=== PATIENT | female | born 1980 | race Caucasian/White ===

== ENCOUNTER 2016-08-06 07:55 | Day surgery (SDC) | payer MEDICARE, OTHER ==
[2016-08-06 08:13] VITALS: BP 123/77; PULSE 86; RESP 20; TEMP 98.2
--- NOTE | 2016-08-06 09:35 | US ---
Postoperative subcutaneous seroma HISTORY: Seroma drainage The procedure was discussed with the patient. The risks, complications, benefits and alternatives wer e discussed. Any questions were answered and informed consent was obtained. All elements of maximal barrier technique were utilized. The patient was placed supine on the ultrasound table, prepped and draped in the usual sterile fashi on. Utilizing 18-gauge needle single accessing of the seroma was achieved. There is removal of appro ximately 300 cc of serous fluid. The patient remained stable throughout procedure and is stable upon discharge the catheterization lab. Case discussed with referring physician who declined placement of drainage catheter. All elements of maximal barrier technique and sterile technique utilized. IMPRESSION: 1. Successful fine-needle aspiration subcutaneous seroma..
== END 2016-08-06 09:40 | disposition home or self-care (01) ==
LOC: RADPROMAIN 07:55
PROVIDERS: ATTEND Surgery Plastic and Reconstructive Surgery
DX: L76.34 Postprocedural seroma of skin and subcutaneous tissue following other procedure (principal)
CPT/HCPCS: 10160; 76942

== ENCOUNTER → 2016-08-21 | Outpatient (CLI) | payer MEDICARE, OTHER ==
[2016-08-21 14:37] VITALS: BP 120/72; PULSE 95; RESP 16; TEMP 99.1; BMI 31.6
--- NOTE | 2016-08-22 08:29 | PN ---
DATE OF SERVICE: 08/21/2016 CHIEF COMPLAINT: Status post panniculectomy. HISTORY OF PRESENT ILLNESS: Kaiser Murray is a 36-year-old female status post panniculectomy on 07/11/2016. She is approximately 6 weeks out. Approximately a little over a week ago, she had drainage of abdominal seroma over 300 mL. She denies any recurrent fullness of the abdomen. She does report mild abdominal pain; however, she had a recent flu. Now she presents for further evaluation and management. Highest weight for her 5-foot 6-inch frame was 300 pounds. Her ideal body weight is 154 pounds. Today she comes in weighing 196 pounds. She has lost approximately 3 pounds since her last visit a month ago. Percent excess weight loss is 71% lifetime. Body mass index reduced from 48.5 down to 31.7 lifetime PHYSICAL EXAM: VITAL SIGNS: 99.1, 95, 16, 120/72; 5 feet 6 inches, 196 pounds, body mass index 31.7. ABDOMEN: Soft, nontender with no recurrent panniculitis. All wounds completely granulated. No palpable fluid wave. GENERAL: Well-developed, pleasant female in no acute distress. MUSCULOSKELETAL: No clubbing, cyanosis. CARDIOVASCULAR: Regular rate. HEENT: No scleral icterus. Extraocular movements grossly intact. Moist buccal mucosa. NECK: Supple without lymphadenopathy. CHEST: Unlabored respirations with equal bilateral excursions. NEURO: No focal or lateralizing signs. ASSESSMENT: 1. History of panniculitis. resolved. 2. Status post panniculectomy. 3. History of abdominal wall seroma. 4. Status post sleeve gastrectomy. 5. Obesity, body mass index is 31.7. 6. Body mass index reduced from 48.5 down to 31.7. 7. Previous history of morbid obesity. PLAN: 1. I recommended a repeat ultrasound with potential fine needle aspiration for abdominal wall seroma. 2. In the interim, she will continue to wear an abdominal binder at all times. 3. She may start with light weights and activity as she is now beyond 6 weeks. [facility]
== END | disposition home or self-care (01) ==
LOC: BARWHC3 13:48
PROVIDERS: ATTEND Surgery Plastic and Reconstructive Surgery
DX: Z48.815 Encounter for surgical aftercare following surgery on the digestive system (principal); K91.872 Postprocedural seroma of a digestive system organ or structure following a digestive system procedure; E66.9 Obesity, unspecified; Z68.31 Body mass index [BMI] 31.0-31.9, adult
CPT/HCPCS: 99211

== ENCOUNTER 2016-09-05 08:37 | Day surgery (SDC) | payer MEDICARE, OTHER ==
[2016-09-05 09:45] VITALS: BP 124/74; PULSE 86; RESP 18; TEMP 97.7
--- NOTE | 2016-09-05 11:08 | US ---
Limited pelvic ultrasound HISTORY: Seroma Ultrasound performed at the site of patient's symptomatology in the anterior abdomen. Minimal fluid i s noted. IMPRESSION: Small postoperative seroma
== END 2016-09-05 10:15 | disposition home or self-care (01) ==
LOC: RADPROMAIN 08:37
PROVIDERS: ATTEND Surgery Plastic and Reconstructive Surgery
DX: K91.873 Postprocedural seroma of a digestive system organ or structure following other procedure (principal); Z53.8 Procedure and treatment not carried out for other reasons
CPT/HCPCS: 76857

== ENCOUNTER → 2016-09-12 | Outpatient (CLI) | payer MEDICARE, OTHER ==
[2016-09-12 10:31] VITALS: BP 113/80; PULSE 84; RESP 18; TEMP 98.1; BMI 32.1
--- NOTE | 2016-09-18 18:48 | P.PN ---
Progress Note - Text DATE OF SERVICE: 09/12/2016 CHIEF COMPLAINT: Status post panniculectomy. HISTORY OF PRESENT ILLNESS: Kaiser Murray is a 36-year-old female status post panniculectomy on 07/11/2016. She is less than 3 months out. She denies any recurrent fullness of the abdomen. She is healing well. She denies any pain. She is eager to start exercising. She continues to wear an abdominal compression garment Highest weight for her 5-foot 6-inch frame was 300 pounds. Her ideal body weight is 154 pounds. Today she comes in weighing 198 pounds. She has gained 2 pounds in 3 weeks. Percent excess weight loss is 70% lifetime. Body mass index reduced from 48.5 down to 32.1 lifetime PHYSICAL EXAM: VITAL SIGNS: 98.1, 84, 18, 113/80; 5 feet 6 inches, 198 pounds, body mass index 32.1. ABDOMEN: Soft, nontender with no recurrent panniculitis. All wounds completely granulated. No palpable fluid wave. Abdominal compression garment present. GENERAL: Well-developed, pleasant female in no acute distress. MUSCULOSKELETAL: No clubbing, cyanosis. CARDIOVASCULAR: Regular rate. HEENT: No scleral icterus. Extraocular movements grossly intact. Moist buccal mucosa. NECK: Supple without lymphadenopathy. CHEST: Unlabored respirations with equal bilateral excursions. NEURO: No focal or lateralizing signs. ASSESSMENT: 1. History of panniculitis. resolved. 2. Status post panniculectomy. 3. Status post weight loss 102 pounds, lifetime. 4. Status post sleeve gastrectomy. 5. Obesity, body mass index is 32.1 6. Body mass index reduced from 48.5 down to 32.1. 7. Previous history of morbid obesity. PLAN: 1. She is free of all restrictions and may resume activity. 2. She may continue to wear abdominal compression garment for comfort. 3. She was advised to monitor her weight as weight regain can cause tearing of her abdominal wall including hernias and recurrent seromas. 4. At minimum, yearly follow-up at the bariatric center for history of sleeve gastrectomy.
== END | disposition home or self-care (01) ==
LOC: BARWHC3 09:58
PROVIDERS: ATTEND Surgery Plastic and Reconstructive Surgery
DX: Z48.815 Encounter for surgical aftercare following surgery on the digestive system (principal); Z98.84 Bariatric surgery status; E66.9 Obesity, unspecified; Z68.32 Body mass index [BMI] 32.0-32.9, adult
CPT/HCPCS: 99212

== ENCOUNTER → 2018-04-15 | Outpatient (CLI) | payer BC ==
[2018-04-15 16:57] VITALS: BP 131/81; PULSE 76; RESP 12; TEMP 99.5; BMI 32.4
--- NOTE | 2018-04-15 17:08 | P.PN ---
Subjective Progress Note Date: 04/15/18 HPI: Her weight has been stable for 2 years. She reports no abdominal pain. GERD is controlled with medications. She is taking MVI. ABDOMEN: Unremarkable. No recurrent hernia PLAN: 1. Cardio advised. 2. Get blood work. Objective - Vital Signs Vital signs: Vital Signs Temp 99.5 F 04/15/18 16:49 Pulse 76 04/15/18 16:49 Resp 12 04/15/18 16:49 BP 131/81 04/15/18 16:49 Pulse Ox Intake & Output 04/14/18 04/15/18 04/15/18 18:59 06:59 18:59 Weight 91.172 kg
[2018-04-15 18:26] LABS: Partial Thromboplastin Time 23.5 sec (22.0-30.0); Prothrombin Time 9.9 sec (9.0-12.0)
[2018-04-15 18:34] LABS: ALT 21 U/L (9-52); AST 21 U/L (14-36); Albumin 4.3 g/dL (3.5-5.0); Alkaline Phosphatase 60 U/L (38-126); Anion Gap 10 mmol/L; Blood Urea Nitrogen 11 mg/dL (7-17); Calcium 9.6 mg/dL (8.4-10.2); Carbon Dioxide 26 mmol/L (22-30); Chloride 104 mmol/L (98-107); Cholesterol 189 mg/dL (<200); Glucose 102 mg/dL (74-99); HDL Cholesterol 68 mg/dL (40-60); LDL Cholesterol,Calculated 109 mg/dL (0-99); Magnesium 2.1 mg/dL (1.6-2.3); Phosphorus 4.8 mg/dL (2.5-4.5); Potassium 4.9 mmol/L (3.5-5.1); Sodium 140 mmol/L (137-145); Total Bilirubin 0.2 mg/dL (0.2-1.3); Total Protein 7.6 g/dL (6.3-8.2); Triglycerides 61 mg/dL (<150)
[2018-04-15 18:50] LABS: HCT 40.2 % (34.0-46.0); HGB 12.7 gm/dL (11.4-16.0); Hypochromasia Slight; MCH 27.9 pg (25.0-35.0); MCHC 31.6 g/dL (31.0-37.0); MCV 88.3 fL (80.0-100.0); Mean Platelet Volume 7.3; Platelet Count 358 k/uL (150-450); RBC 4.55 m/uL (3.80-5.40); RDW 14.5 % (11.5-15.5); WBC 6.4 k/uL (3.8-10.6)
[2018-04-16 01:53] LABS: Iron Saturation 13.47 (12.00-45.00)
[2018-04-16 02:01] LABS: Vitamin D 25 Hydroxy 36.8 ng/mL (30.0-100.0)
[2018-04-16 02:25] LABS: Folate, Serum >24.0 ng/mL
[2018-04-16 02:40] LABS: Parathyroid Hormone Intact 50.4 pg/mL (14.0-72.0)
[2018-04-16 05:29] LABS: Hemoglobin A1C 5.5 % (4.0-6.0)
[2018-04-17 15:08] LABS: Zinc, Serum 91 ug/dL (60-130)
[2018-04-20 06:13] LABS: Vitamin B1 90 ug/L (38-122)
[2018-04-21 08:23] LABS: Vitamin A 51 ug/dL (38-106)
[2018-04-21 15:22] LABS: Selenium 134 mcg/L (63-160)
== END | disposition home or self-care (01) ==
LOC: BARWHC3 15:33
PROVIDERS: ATTEND Surgery Plastic and Reconstructive Surgery
DX: R10.9 Unspecified abdominal pain (principal); K21.9 Gastro-esophageal reflux disease without esophagitis; E66.01 Morbid (severe) obesity due to excess calories; E21.1 Secondary hyperparathyroidism, not elsewhere classified; E89.1 Postprocedural hypoinsulinemia; D50.9 Iron deficiency anemia, unspecified; K90.9 Intestinal malabsorption, unspecified; E55.9 Vitamin D deficiency, unspecified; K74.1 Hepatic sclerosis; N19 Unspecified kidney failure; K50.90 Crohn's disease, unspecified, without complications; Z79.899 Other long term (current) drug therapy
CPT/HCPCS: 80053; 80061; 82306; 82525; 82607; 82728; 82746; 83036; 83540; 83550; 83735; 83970; 84100; 84134; 84255; 84425; 84443; 84590; 84630; 85027; 85610; 85730; 99211

== ENCOUNTER 2018-05-03 18:35 | Emergency (ER) | payer MEDICARE, BC ==
--- NOTE | 2018-05-03 19:06 | ED ---
General Adult HPI - General Chief complaint: Chest Pain Stated complaint: CHest Pain, Arm Numbness Time Seen by Provider: 05/03/18 18:44 Source: patient, RN notes reviewed, old records reviewed Mode of arrival: ambulatory Limitations: no limitations - History of Present Illness Initial comments: This is a 38-year-old female the ER for evaluation. Patient is evaluation of testing. Patient does have no medical history of chest pain, no prior history of chest pain. No cardiac risk factors, no high blood pressure normal cholesterol no diabetes nonsmoker with no family history. Patient states she does have mild psychiatric illness. Patient has been under a lot of increased stress as of recent. She was helping her family move although her is disabled secondary to an accident fractured his leg. - Related Data Home Medications Medication Instructions Recorded Confirmed Multivitamins, Thera [Multivitamin 1 tab PO DAILY 06/08/14 04/15/18 (formulary)] QUEtiapine [SEROquel] 50 mg PO DAILY 02/07/16 04/15/18 lamoTRIgine 200 mg PO BID 02/16/16 04/15/18 FLUoxetine HCL [PROzac] 20 mg PO DAILY 03/13/16 04/15/18 Amoxicillin 500 mg PO Q12HR 04/15/18 04/15/18 Previous Rx's Medication Instructions Recorded Omeprazole 40 mg PO DAILY #90 capsule. 07/12/16 Allergies Allergy/AdvReac Type Severity Reaction Status Date / Time No Known Allergies Allergy Verified 05/03/18 18:42 Review of Systems ROS Statement: Those systems with pertinent positive or pertinent negative responses have been documented in the HPI. ROS Other: All systems not noted in ROS Statement are negative. Past Medical History Past Medical History: GERD/Reflux Additional Past Medical History / Comment(s): past history of hypertension, as of 03/13/16 has no complaints of GERD> History of Any Multi-Drug Resistant Organisms: None Reported Past Surgical History: Bariatric Surgery, Cholecystectomy, Tubal Ligation Additional Past Surgical History / Comment(s): LAPAROTOMY, BILATERAL FALLOPIAN TUBES REMOVED ,Sleeve gastrectomy 12/12/14, paniculectomy Jul 2016 Past Anesthesia/Blood Transfusion Reactions: No Reported Reaction Past Psychological History: Anxiety, Bipolar, Depression, PTSD Smoking Status: Never smoker Past Alcohol Use History: Rare Past Drug Use History: None Reported - Past Family History Mother Family Medical History: No Reported History Additional Family Medical History / Comment(s): colitis General Exam Limitations: no limitations General appearance: alert, in no apparent distress Head exam: Present: atraumatic, normocephalic, normal inspection Eye exam: Present: normal appearance, PERRL, EOMI. Absent: scleral icterus, conjunctival injection, periorbital swelling ENT exam: Present: normal exam, mucous membranes moist Neck exam: Present: normal inspection. Absent: tenderness, meningismus, lymphadenopathy Respiratory exam: Present: normal lung sounds bilaterally. Absent: respiratory distress, wheezes, rales, rhonchi, stridor Cardiovascular Exam: Present: regular rate, normal rhythm, normal heart sounds. Absent: systolic murmur, diastolic murmur, rubs, gallop, clicks GI/Abdominal exam: Present: soft, normal bowel sounds. Absent: distended, tenderness, guarding, rebound, rigid Extremities exam: Present: normal inspection, full ROM, normal capillary refill. Absent: tenderness, pedal edema, joint swelling, calf tenderness Back exam: Present: normal inspection Neurological exam: Present: alert, oriented X3, CN II-XII intact Psychiatric exam: Present: normal affect, normal mood Skin exam: Present: warm, dry, intact, normal color. Absent: rash Course Vital Signs 05/03/18 05/03/18 18:40 19:05 Temperature 98.2 F Pulse Rate 86 73 Respiratory 16 18 Rate Blood Pressure 113/75 130/73 O2 Sat by Pulse 100 99 Oximetry - Reevaluation(s) Reevaluation #1: 05/03/18 19:40 Medical record is reviewed Reevaluation #2: 05/03/18 19:40 Patient is in no distress, no modifying factors for pain EKG Findings - EKG Comments: EKG Findings:: EKG shows normal sinus rhythm rate of 73, OK 156, QRS 92, QTc 424 Medical Decision Making - Medical Decision Making 38 female the ER for evaluation. Patient presents today for evaluation of chest pain. Chest pain is nonspecific with left hand numbness. Not reproducible. EKG troponin x-ray negative. Patient has no cardiac risk factors will be discharged home - Lab Data Result diagrams: 05/03/18 19:02 05/03/18 19:02 Lab Results 05/03/18 05/03/18 05/03/18 Range/Units 19:02 19:02 19:02 WBC 7.5 (3.8-10.6) k/uL RBC 4.40 (3.80-5.40) m/uL Hgb 12.4 (11.4-16.0) gm/dL Hct 38.3 (34.0-46.0) % MCV 87.1 (80.0-100.0) fL MCH 28.1 (25.0-35.0) pg MCHC 32.3 (31.0-37.0) g/dL RDW 14.6 (11.5-15.5) % Plt Count 345 (150-450) k/uL Neutrophils % 59 % Lymphocytes % 31 % Monocytes % 5 % Eosinophils % 2 % Basophils % 0 % Neutrophils # 4.4 (1.3-7.7) k/uL Lymphocytes # 2.3 (1.0-4.8) k/uL Monocytes # 0.4 (0-1.0) k/uL Eosinophils # 0.2 (0-0.7) k/uL Basophils # 0.0 (0-0.2) k/uL PT 9.7 (9.0-12.0) sec INR 1.0 (<1.2) APTT 23.3 (22.0-30.0) sec Sodium 140 (137-145) mmol/L Potassium 4.6 (3.5-5.1) mmol/L Chloride 104 (98-107) mmol/L Carbon Dioxide 27 (22-30) mmol/L Anion Gap 9 mmol/L BUN 14 (7-17) mg/dL Creatinine 0.66 (0.52-1.04) mg/dL Est GFR (CKD-EPI)AfAm >90 (>60 ml/min/1.73 sqM) Est GFR (CKD-EPI)NonAf >90 (>60 ml/min/1.73 sqM) Glucose 93 (74-99) mg/dL Calcium 9.4 (8.4-10.2) mg/dL Magnesium 2.0 (1.6-2.3) mg/dL Total Bilirubin 0.2 (0.2-1.3) mg/dL AST 33 (14-36) U/L ALT 27 (9-52) U/L Alkaline Phosphatase 68 (38-126) U/L Total Protein 7.4 (6.3-8.2) g/dL Albumin 4.2 (3.5-5.0) g/dL - Radiology Data Radiology results: report reviewed (Chest x-rays negative for acute disease), image reviewed Disposition Clinical Impression: Atypical chest pain Disposition: HOME SELF-CARE Condition: Good Instructions: Chest Pain (ED) Is patient prescribed a controlled substance at d/c from ED?: No Referrals: Stevie Friedman III, MD [Primary Care Provider] - 1-2 days
[2018-05-03 19:26] LABS: Basophils % (A) 0 %; Eosinophils # (A) 0.2 k/uL (0-0.7); Eosinophils % (A) 2 %; HCT 38.3 % (34.0-46.0); HGB 12.4 gm/dL (11.4-16.0); Lymphocytes # (A) 2.3 k/uL (1.0-4.8); Lymphocytes % (A) 31 %; MCH 28.1 pg (25.0-35.0); MCHC 32.3 g/dL (31.0-37.0); MCV 87.1 fL (80.0-100.0); Mean Platelet Volume 7.5; Monocytes # (A) 0.4 k/uL (0-1.0); Monocytes % (A) 5 %; Neutrophils # (A) 4.4 k/uL (1.3-7.7); Neutrophils % (A) 59 %; Platelet Count 345 k/uL (150-450); RDW 14.6 % (11.5-15.5); WBC 7.5 k/uL (3.8-10.6)
--- NOTE | 2018-05-03 19:26 | XR ---
EXAMINATION TYPE: XR chest 2V DATE OF EXAM: 05/03/2018 COMPARISON: NONE HISTORY: Chest pain TECHNIQUE: Frontal and lateral views of the chest are obtained. FINDINGS: Heart and mediastinum are normal. Lungs are clear. Diaphragm is normal. Bony thorax is int act. IMPRESSION: Normal chest.
[2018-05-03 19:36] LABS: Partial Thromboplastin Time 23.3 sec (22.0-30.0); Prothrombin Time 9.7 sec (9.0-12.0)
[2018-05-03 19:38] LABS: ALT 27 U/L (9-52); AST 33 U/L (14-36); Albumin 4.2 g/dL (3.5-5.0); Alkaline Phosphatase 68 U/L (38-126); Anion Gap 9 mmol/L; Blood Urea Nitrogen 14 mg/dL (7-17); Calcium 9.4 mg/dL (8.4-10.2); Carbon Dioxide 27 mmol/L (22-30); Chloride 104 mmol/L (98-107); Glucose 93 mg/dL (74-99); Potassium 4.6 mmol/L (3.5-5.1); Sodium 140 mmol/L (137-145); Total Bilirubin 0.2 mg/dL (0.2-1.3); Total Protein 7.4 g/dL (6.3-8.2)
[2018-05-03 19:49] LABS: Creatine Kinase 266 U/L (30-135)
[2018-05-03 20:01] LABS: Creatine Kinase MB 1.8 ng/mL (0.0-2.4); Troponin I <0.012 ng/mL (0.000-0.034)
[2018-05-03 20:06] VITALS: BP 143/82; PULSE 70; RESP 16; TEMP 98.4
== END 2018-05-03 20:50 | disposition home or self-care (01) ==
LOC: EC 18:35
DX: R07.89 Other chest pain (principal); R20.0 Anesthesia of skin; F31.9 Bipolar disorder, unspecified; F41.9 Anxiety disorder, unspecified; Z79.899 Other long term (current) drug therapy
CPT/HCPCS: 36415; 71046; 80053; 82550; 82553; 83735; 84484; 85025; 85610; 85730; 93005; 99285

== ENCOUNTER 2018-05-25 20:13 | Emergency (ER) | payer MEDICARE, BC ==
[2018-05-25 20:24] VITALS: RESP 18
--- NOTE | 2018-05-25 21:28 | ED ---
Abdominal Pain HPI - General Chief Complaint: Abdominal Pain Stated Complaint: side pain Source: patient Mode of arrival: ambulatory Limitations: no limitations - History of Present Illness Initial Comments: Injury is a 38-year-old female with a history of bariatric surgery in the past who presents the emergency department today for 1 day of right lower quadrant abdominal pain. Patient reports that she woke Friday morning experiencing some aching pain in her right lower quadrant. Patient states that she had been out dancing Friday night so thought this pain was musculoskeletal in nature. She reports that since that time the pain has progressively grown worse, it's a aching with occasional stabbing in her right lower quadrant. The pain is associated with nausea, but no vomiting. Patient reports she's had a few episodes of nonbloody diarrhea as well. Patient has a history of bariatric surgery as well as a cholecystectomy. Patient denies any fevers but reports she's been chilled. She denies any additional complaints including chest pain, shortness of breath. - Related Data Home Medications Medication Instructions Recorded Confirmed Multivitamins, Thera [Multivitamin 1 tab PO DAILY 06/08/14 05/25/18 (formulary)] QUEtiapine [SEROquel] 50 mg PO HS 02/07/16 05/25/18 lamoTRIgine 200 mg PO BID 02/16/16 05/25/18 FLUoxetine HCL [PROzac] 20 mg PO DAILY 03/13/16 05/25/18 Previous Rx's Medication Instructions Recorded Omeprazole 40 mg PO DAILY #90 capsule. 07/12/16 Allergies Allergy/AdvReac Type Severity Reaction Status Date / Time No Known Allergies Allergy Verified 05/25/18 21:39 Review of Systems ROS Statement: Those systems with pertinent positive or pertinent negative responses have been documented in the HPI. ROS Other: All systems not noted in ROS Statement are negative. Past Medical History Past Medical History: GERD/Reflux Additional Past Medical History / Comment(s): past history of hypertension, as of 03/13/16 has no complaints of GERD> History of Any Multi-Drug Resistant Organisms: None Reported Past Surgical History: Bariatric Surgery, Cholecystectomy, Tubal Ligation Additional Past Surgical History / Comment(s): LAPAROTOMY, BILATERAL FALLOPIAN TUBES REMOVED ,Sleeve gastrectomy 12/12/14, paniculectomy Jul 2016 Past Anesthesia/Blood Transfusion Reactions: No Reported Reaction Past Psychological History: Anxiety, Bipolar, Depression, PTSD Smoking Status: Never smoker Past Alcohol Use History: Occasional Past Drug Use History: None Reported - Past Family History Mother Family Medical History: No Reported History Additional Family Medical History / Comment(s): colitis General Exam - General Exam Comments Initial Comments: Physical Exam GENERAL: Patient is well-developed and well-nourished. Patient is nontoxic and well-hydrated and is in mild distress HENT: Normocephalic, Atraumatic. EYES: PERRL, EOMI PULMONARY: Unlabored respirations. No audible rales rhonchi or wheezing was noted. CARDIOVASCULAR: There is a regular rate and rhythm without any murmurs gallops or rubs. ABDOMEN: Soft with normal bowel sounds. Tenderness to deep palpation in the right lower quadrant, negative Rovsing sign , negative psoas sign, negative obturator sign Minimal tenderness to palpation of right flank SKIN: Skin is clear with no lesions or rashes and otherwise unremarkable. Well-healed surgical scars on the abdomen : Deferred NEUROLOGIC: Patient is alert and oriented x3. Moving all extremities spontaneously MUSCULOSKELETAL: Normal extremities with adequate strength and full range of motion. No lower extremity swelling or edema. No calf tenderness. PSYCHIATRIC: Normal psychiatric evaluation. Limitations: no limitations Limitations: no limitations Course Vital Signs 05/25/18 05/25/18 20:22 23:44 Temperature 97.6 F 98.1 F Pulse Rate 87 75 Respiratory 18 18 Rate Blood Pressure 109/77 128/84 O2 Sat by Pulse 99 Oximetry Medical Decision Making - Medical Decision Making Patient was seen and evaluated, history was obtained from the patient and review of medical record Patient with one half days of right lower quadrant abdominal pain which has been progressively worsening associated with nausea and decreased appetite Patient's last menstrual period was last month she is due to start her menses anytime, she is status post tubal ligation with no concern for or sexual transmitted infections Labs and computed tomography scan were ordered Labs and no significant abnormalities Computed tomography scan evidence of a right-sided ovarian cyst measuring 2.8 cm , no free fluid in the pelvis, no evidence of appendicitis Results were discussed with the patient, patient then revealed that she does have a history of ovarian cysts and this pain is similar to previous ovarian cyst that she has previously only experienced pain on the left side of her the right. All questions pertaining to care were answered the best my ability, return parameters were discussed and the patient was discharged home in stable condition - Lab Data Result diagrams: 05/25/18 21:40 05/25/18 21:40 Lab Results 05/25/18 05/25/18 05/25/18 Range/Units 20:45 20:45 21:40 WBC 8.4 (3.8-10.6) k/uL RBC 4.43 (3.80-5.40) m/uL Hgb 12.8 (11.4-16.0) gm/dL Hct 39.2 (34.0-46.0) % MCV 88.4 (80.0-100.0) fL MCH 28.9 (25.0-35.0) pg MCHC 32.7 (31.0-37.0) g/dL RDW 14.8 (11.5-15.5) % Plt Count 366 (150-450) k/uL Neutrophils % 55 % Lymphocytes % 32 % Monocytes % 8 % Eosinophils % 3 % Basophils % 0 % Neutrophils # 4.6 (1.3-7.7) k/uL Lymphocytes # 2.6 (1.0-4.8) k/uL Monocytes # 0.7 (0-1.0) k/uL Eosinophils # 0.3 (0-0.7) k/uL Basophils # 0.0 (0-0.2) k/uL Sodium (137-145) mmol/L Potassium (3.5-5.1) mmol/L Chloride (98-107) mmol/L Carbon Dioxide (22-30) mmol/L Anion Gap mmol/L BUN (7-17) mg/dL Creatinine (0.52-1.04) mg/dL Est GFR (CKD-EPI)AfAm (>60 ml/min/1.73 sqM) Est GFR (CKD-EPI)NonAf (>60 ml/min/1.73 sqM) Glucose (74-99) mg/dL Calcium (8.4-10.2) mg/dL Total Bilirubin (0.2-1.3) mg/dL AST (14-36) U/L ALT (9-52) U/L Alkaline Phosphatase (38-126) U/L Total Protein (6.3-8.2) g/dL Albumin (3.5-5.0) g/dL Lipase (23-300) U/L Urine Color Colorless Urine Appearance Clear (Clear) Urine pH 7.0 (5.0-8.0) Ur Specific [place] 1.004 (1.001-1.035) Urine Protein Negative (Negative) Urine Glucose (UA) Negative (Negative) Urine Ketones Negative (Negative) Urine Blood Negative (Negative) Urine Nitrite Negative (Negative) Urine Bilirubin Negative (Negative) Urine Urobilinogen <2.0 (<2.0) mg/dL Ur Leukocyte Esterase Negative (Negative) Urine HCG, Qual Not Detected (Not Detectd) 05/25/18 Range/Units 21:40 WBC (3.8-10.6) k/uL RBC (3.80-5.40) m/uL Hgb (11.4-16.0) gm/dL Hct (34.0-46.0) % MCV (80.0-100.0) fL MCH (25.0-35.0) pg MCHC (31.0-37.0) g/dL RDW (11.5-15.5) % Plt Count (150-450) k/uL Neutrophils % % Lymphocytes % % Monocytes % % Eosinophils % % Basophils % % Neutrophils # (1.3-7.7) k/uL Lymphocytes # (1.0-4.8) k/uL Monocytes # (0-1.0) k/uL Eosinophils # (0-0.7) k/uL Basophils # (0-0.2) k/uL Sodium 137 (137-145) mmol/L Potassium 5.0 (3.5-5.1) mmol/L Chloride 103 (98-107) mmol/L Carbon Dioxide 25 (22-30) mmol/L Anion Gap 9 mmol/L BUN 18 H (7-17) mg/dL Creatinine 0.70 (0.52-1.04) mg/dL Est GFR (CKD-EPI)AfAm >90 (>60 ml/min/1.73 sqM) Est GFR (CKD-EPI)NonAf >90 (>60 ml/min/1.73 sqM) Glucose 91 (74-99) mg/dL Calcium 9.6 (8.4-10.2) mg/dL Total Bilirubin 0.5 (0.2-1.3) mg/dL AST 48 H (14-36) U/L ALT 22 (9-52) U/L Alkaline Phosphatase 62 (38-126) U/L Total Protein 8.6 H (6.3-8.2) g/dL Albumin 4.8 (3.5-5.0) g/dL Lipase 131 (23-300) U/L Urine Color Urine Appearance (Clear) Urine pH (5.0-8.0) Ur Specific [place] (1.001-1.035) Urine Protein (Negative) Urine Glucose (UA) (Negative) Urine Ketones (Negative) Urine Blood (Negative) Urine Nitrite (Negative) Urine Bilirubin (Negative) Urine Urobilinogen (<2.0) mg/dL Ur Leukocyte Esterase (Negative) Urine HCG, Qual (Not Detectd) Disposition Clinical Impression: Ovarian cyst Disposition: HOME SELF-CARE Condition: Good Instructions: Ovarian Cyst (ED), Ruptured Ovarian Cyst (ED) Is patient prescribed a controlled substance at d/c from ED?: No Referrals: Stevie Friedman III, MD [Primary Care Provider] - 1-2 days
[2018-05-25] MEDS ORDERED: SODIUM CHLORIDE 0.9% 1,000 ML IV STA (21:35)
[2018-05-25 21:55] LABS: Basophils % (A) 0 %; Eosinophils # (A) 0.3 k/uL (0-0.7); Eosinophils % (A) 3 %; HCT 39.2 % (34.0-46.0); HGB 12.8 gm/dL (11.4-16.0); Lymphocytes # (A) 2.6 k/uL (1.0-4.8); Lymphocytes % (A) 32 %; MCH 28.9 pg (25.0-35.0); MCHC 32.7 g/dL (31.0-37.0); MCV 88.4 fL (80.0-100.0); Mean Platelet Volume 7.8; Monocytes # (A) 0.7 k/uL (0-1.0); Monocytes % (A) 8 %; Neutrophils # (A) 4.6 k/uL (1.3-7.7); Neutrophils % (A) 55 %; Platelet Count 366 k/uL (150-450); RBC 4.43 m/uL (3.80-5.40); RDW 14.8 % (11.5-15.5); WBC 8.4 k/uL (3.8-10.6)
[2018-05-25 22:05] LABS: ALT 22 U/L (9-52); AST 48 U/L (14-36); Albumin 4.8 g/dL (3.5-5.0); Alkaline Phosphatase 62 U/L (38-126); Anion Gap 9 mmol/L; Blood Urea Nitrogen 18 mg/dL (7-17); Calcium 9.6 mg/dL (8.4-10.2); Carbon Dioxide 25 mmol/L (22-30); Chloride 103 mmol/L (98-107); Glucose 91 mg/dL (74-99); Lipase 131 U/L (23-300); Sodium 137 mmol/L (137-145); Total Bilirubin 0.5 mg/dL (0.2-1.3); Total Protein 8.6 g/dL (6.3-8.2)
[2018-05-25 22:05] LABS: Appearance,Urine Clear (Clear); Bilirubin,Urine Negative (Negative); Blood,Urine Negative (Negative); Color,Urine Colorless; Glucose,Urine (UA) Negative (Negative); Ketones,Urine Negative (Negative); Leukocyte Esterase,Urine Negative (Negative); Nitrite,Urine Negative (Negative); Protein,Urine Negative (Negative); Specific Gravity,Urine 1.004 (1.001-1.035); Urobilinogen,Urine <2.0 mg/dL (<2.0)
--- NOTE | 2018-05-25 23:23 | CT ---
EXAMINATION TYPE: CT abdomen pelvis w con DATE OF EXAM: 05/25/2018 COMPARISON: 11/20/2012 HISTORY: Right lower quadrant abdominal pain and nausea. CT DLP: 1049.3 mGycm Automated exposure control for dose reduction was used. TECHNIQUE: Helical acquisition of images was performed from the lung bases through the pelvis. CONTRAST: Performed without Oral Contrast and with IV Contrast, patient injected with 100ml mL of Isovue 300. FINDINGS: Lung bases are clear. There is no pleural effusion. Heart size is normal. There is no pericardial eff usion. There are clips from area tricks surgery on the stomach. Heart size is normal. Liver spleen pancreas appear normal. Bile ducts are not dilated. Gallbladder appears absent. There is no adrenal mass. Kidneys have normal size and contour. There is no hydronephrosis. The urete rs are nondilated. There is 1.5 cm cyst anterior right kidney. There is 3 mm calculus lateral left ki dney. There is no retroperitoneal adenopathy. Ureters are not dilated. There is no hydronephrosis. Uterus is anteverted. Bladder distends smoothly. I see no free fluid in the pelvis. There is no ingui nal hernia. There is 2.8 cm cyst on the right ovary. I see no pelvic adenopathy. The appendix appears normal. There is no intestinal wall thickening. There are no dilated loops. The bony structures appe ar intact. Bony pelvis is intact. There is no compression fracture. IMPRESSION: BARIATRIC SURGERY. RIGHT OVARIAN CYST. NONOBSTRUCTING LEFT RENAL CALCULUS. NO SIGN OF ACUTE ABDOMEN A ND PELVIS. NO EVIDENCE OF APPENDICITIS. NORMAL APPENDIX. RIGHT OVARY CYST IS NEW COMPARED TO OLD EXAM AND COULD BE CAUSE FOR THE PATIENT'S SYMPTOMS.
[2018-05-25] MEDS ORDERED: KETOROLAC 30 MG/ML 1 ML VIAL IVP ONE (23:37)
[2018-05-25 23:52] VITALS: BP 128/84; PULSE 75; TEMP 98.1
== END 2018-05-25 23:50 | disposition home or self-care (01) ==
LOC: EC 20:13
DX: N83.201 Unspecified ovarian cyst, right side (principal); F31.9 Bipolar disorder, unspecified; F41.9 Anxiety disorder, unspecified; F43.10 Post-traumatic stress disorder, unspecified; Z79.899 Other long term (current) drug therapy; Z98.51 Tubal ligation status; Z98.84 Bariatric surgery status; Z90.49 Acquired absence of other specified parts of digestive tract
CPT/HCPCS: 36415; 80053; 83690; 85025; 81003; 81025; 74177; 99284; 96374; 96361; J1885; Q9967

== ENCOUNTER 2018-11-02 05:33 | Emergency (ER) | payer BC, MEDICARE ==
[2018-11-02 05:44] VITALS: BP 126/84; PULSE 92; RESP 20; TEMP 98.3
[2018-11-02] MEDS ORDERED: AMOXICILLIN 875 MG TAB PO STA (06:02)
--- NOTE | 2018-11-02 06:04 | ED ---
ENT HPI - General Chief complaint: ENT Stated complaint: Sore throat Time Seen by Provider: 11/02/18 05:48 Source: patient, family Mode of arrival: ambulatory Limitations: no limitations - History of Present Illness Initial comments: This patient is 38-year-old woman presenting with sore throat that started about 3 days ago. Over the past day she has also been having fever and chills. She has had some bifrontal headache over the past night. Patient states that the pain is aching and burning, worse with swallowing. She has not discovered any relieving factors. She is not having any difficulty with breathing, speech. MD complaint: sore throat Onset/Timin -: days(s) Location: throat Severity: moderate Quality: burning, aching Consistency: constant Improves with: none Worsens with: swallowing Associated Symptoms: fever, sore throat - Related Data Home Medications Medication Instructions Recorded Confirmed Multivitamins, Thera [Multivitamin 1 tab PO DAILY 06/08/14 05/25/18 (formulary)] QUEtiapine [SEROquel] 50 mg PO HS 02/07/16 05/25/18 lamoTRIgine 200 mg PO BID 02/16/16 05/25/18 FLUoxetine HCL [PROzac] 20 mg PO DAILY 03/13/16 05/25/18 Previous Rx's Medication Instructions Recorded Omeprazole 40 mg PO DAILY #90 capsule. 07/12/16 Amoxicillin 875 mg PO Q12HR #14 tablet 11/02/18 Allergies Allergy/AdvReac Type Severity Reaction Status Date / Time No Known Allergies Allergy Verified 11/02/18 05:44 Review of Systems ROS Statement: Those systems with pertinent positive or pertinent negative responses have been documented in the HPI. ROS Other: All systems not noted in ROS Statement are negative. Constitutional: Reports: fever, chills. Denies: weakness Eyes: Denies: eye pain, vision change ENT: Reports: throat pain. Denies: ear pain, hearing loss Respiratory: Denies: cough, dyspnea Cardiovascular: Denies: chest pain, palpitations Gastrointestinal: Denies: abdominal pain, nausea, vomiting Genitourinary: Denies: dysuria, hematuria Skin: Denies: rash Neurological: Reports: headache. Denies: weakness, numbness Past Medical History Past Medical History: GERD/Reflux Additional Past Medical History / Comment(s): past history of hypertension, as of 03/13/16 has no complaints of GERD> History of Any Multi-Drug Resistant Organisms: None Reported Past Surgical History: Bariatric Surgery, Cholecystectomy, Tubal Ligation Additional Past Surgical History / Comment(s): LAPAROTOMY, BILATERAL FALLOPIAN TUBES REMOVED ,Sleeve gastrectomy 12/12/14, paniculectomy Jul 2016 Past Anesthesia/Blood Transfusion Reactions: No Reported Reaction Past Psychological History: Anxiety, Bipolar, Depression, PTSD Smoking Status: Never smoker Past Alcohol Use History: Occasional Past Drug Use History: None Reported - Past Family History Mother Family Medical History: No Reported History Additional Family Medical History / Comment(s): colitis General Exam Limitations: no limitations General appearance: alert, in no apparent distress Head exam: Present: atraumatic, normocephalic Eye exam: Present: normal appearance. Absent: scleral icterus, conjunctival injection ENT exam: Present: mucous membranes moist, other (Patient has pharyngitis. The uvula is midline with no peritonsillar abscess. Voice normal.) Neck exam: Present: normal inspection, full ROM, lymphadenopathy. Absent: meningismus Respiratory exam: Present: normal lung sounds bilaterally. Absent: respiratory distress, wheezes, rales, rhonchi, stridor Cardiovascular Exam: Present: regular rate, normal rhythm, normal heart sounds. Absent: systolic murmur, diastolic murmur, rubs, gallop GI/Abdominal exam: Present: soft. Absent: distended, tenderness, guarding, rebound, rigid, organomegaly, mass Skin exam: Present: warm, dry, intact, normal color. Absent: rash Course Vital Signs 11/02/18 05:39 Temperature 98.3 F Pulse Rate 92 Respiratory 20 Rate Blood Pressure 126/84 O2 Sat by Pulse 99 Oximetry Disposition Clinical Impression: Strep pharyngitis Disposition: HOME SELF-CARE Condition: Good Instructions (If sedation given, give patient instructions): Strep Throat (ED) Prescriptions: Amoxicillin 875 mg PO Q12HR #14 tablet Is patient prescribed a controlled substance at d/c from ED?: No Referrals: Stevie Friedman III, MD [Primary Care Provider] - 1-2 days
== END 2018-11-02 06:44 | disposition home or self-care (01) ==
LOC: EC 05:33
DX: J02.0 Streptococcal pharyngitis (principal); F31.9 Bipolar disorder, unspecified; F43.10 Post-traumatic stress disorder, unspecified; F41.9 Anxiety disorder, unspecified; Z79.899 Other long term (current) drug therapy
CPT/HCPCS: 99282

== ENCOUNTER → 2019-01-13 | Outpatient (CLI) | payer BC | END | disposition home or self-care (01) | LOC: RADNMMAIN 07:39 | PROVIDERS: ATTEND Family Medicine | DX: R07.9 Chest pain, unspecified (principal); R00.0 Tachycardia, unspecified | CPT/HCPCS: 93017 ==

== ENCOUNTER → 2019-04-30 | Outpatient (CLI) | payer BC ==
--- NOTE | 2019-04-30 16:13 | US ---
EXAMINATION TYPE: US abdomen complete DATE OF EXAM: 04/30/2019 COMPARISON: CT & US CLINICAL HISTORY: R10.9 abd pain. Pt states bloating and pain x 2 weeks, GB removed EXAM MEASUREMENTS: Liver Length: 16.3 cm CBD: 0.7 cm Spleen: 9.0 cm Right Kidney: 11.2 x 4.8 x 5.1 cm Left Kidney: 11.9 x 5.7 x 5.2 cm Pancreas: wnl Liver: wnl Gallbladder: Surgically absent Evidence for sonographic Womack's sign: No CBD: wnl Spleen: wnl, accessory spleen= 1.1 x 1.1 cm Right Kidney: wnl, lower pole gassed out Left Kidney: No evidence of hydro, possible calculi upper pole= 4mm Upper IVC: wnl Abd Aorta: wnl IMPRESSION: 1. Nonobstructing superior pole left renal stone
== END | disposition home or self-care (01) ==
LOC: RADUSWWP 09:45
PROVIDERS: ATTEND Family Medicine
DX: N20.0 Calculus of kidney (principal)
CPT/HCPCS: 76700

== ENCOUNTER → 2019-05-05 | Outpatient (CLI) | payer BC ==
--- NOTE | 2019-05-05 15:32 | P.PN ---
Subjective Progress Note Date: 05/05/19 She comes in with weight gain. She is not journaling her foods. She reports stretching sensation of the abdomen. Her appetite is increased with Effexor. She reports under active thyroid. Pristiq is good. [employer] Follow up in 2 weeks.
[2019-05-05 17:19] LABS: INR 0.9 (<1.2); Partial Thromboplastin Time 24.9 sec (22.0-30.0)
[2019-05-05 17:24] LABS: HCT 41.3 % (34.0-46.0); HGB 13.1 gm/dL (11.4-16.0); MCH 29.5 pg (25.0-35.0); MCHC 31.6 g/dL (31.0-37.0); MCV 93.3 fL (80.0-100.0); Platelet Count 295 k/uL (150-450); RBC 4.42 m/uL (3.80-5.40); RDW 13.3 % (11.5-15.5); WBC 7.6 k/uL (3.8-10.6)
[2019-05-05 17:46] VITALS: BP 122/77; PULSE 67; RESP 16; TEMP 98.3; BMI 34.2
[2019-05-06 00:45] LABS: African American GFR (CKD) 125.6 (60.0-200.0); Albumin 4.4 g/dL (3.80-4.90); Albumin/Globulin Ratio 1.83 (1.60-3.17); Anion Gap 11.5 mmol/L (4.00-12.00); BUN/Creat Ratio 15.71 Ratio (12.00-20.00); Calcium 9.3 mg/dL (8.7-10.3); Carbon Dioxide 23.5 mmol/L (21.6-31.8); Chol/HDL Ratio 2.95; Globulin 2.4 g/dL (1.6-3.3); LDL Cholesterol,Calculated 86.6 mg/dL (0.0-131.0); Magnesium 1.8 mg/dL (1.5-2.4); Phosphorus 4.2 mg/dL (2.4-5.1); Total Bilirubin 0.2 mg/dL (0.3-1.2); Total Protein 6.8 g/dL (6.2-8.2); VLDL Calculation 34.4 mg/dL (5.00-40.00)
[2019-05-06 00:49] LABS: Iron Saturation 19.58 (12.00-45.00)
[2019-05-06 00:58] LABS: Vitamin D 25 Hydroxy 28.4 ng/mL (30.0-100.0)
[2019-05-06 01:05] LABS: Ferritin 8.8 ng/mL (10.0-291.0); Folate, Serum >24.0 ng/mL
[2019-05-06 01:14] LABS: Hemoglobin A1C 5.6 % (4.0-6.0)
[2019-05-06 12:40] LABS: Zinc, Serum 62 ug/dL (60-130)
[2019-05-07 07:24] LABS: Vitamin A 48 ug/dL (38-106)
== END | disposition home or self-care (01) ==
LOC: BARWHC3 13:54
PROVIDERS: ATTEND Surgery Plastic and Reconstructive Surgery
DX: R63.5 Abnormal weight gain (principal); E21.1 Secondary hyperparathyroidism, not elsewhere classified; E89.1 Postprocedural hypoinsulinemia; D50.9 Iron deficiency anemia, unspecified; E55.9 Vitamin D deficiency, unspecified; K74.1 Hepatic sclerosis; N19 Unspecified kidney failure; K50.90 Crohn's disease, unspecified, without complications
CPT/HCPCS: 36415; 80053; 80061; 82306; 82525; 82607; 82728; 82746; 83036; 83540; 83550; 83735; 83970; 84100; 84134; 84255; 84425; 84443; 84590; 84630; 85027; 85610; 85730; 99211

== ENCOUNTER 2019-05-09 13:53 | Emergency (ER) | payer BC ==
[2019-05-09 14:12] VITALS: RESP 18; TEMP 97.8
[2019-05-09] MEDS ORDERED: ONDANSETRON 4 MG/2 ML VIAL IVP STA (15:53)
[2019-05-09] MEDS ORDERED: KETOROLAC 30 MG/ML 1 ML VIAL IVP STA (15:53)
[2019-05-09] MEDS ORDERED: SODIUM CHLORIDE 0.9% 1,000 ML IV STA (15:53)
--- NOTE | 2019-05-09 15:53 | ED ---
Abdominal Pain HPI - General Chief Complaint: Abdominal Pain Stated Complaint: RLQ pain Time Seen by Provider: 05/09/19 14:15 Source: patient Mode of arrival: ambulatory Limitations: no limitations - History of Present Illness Initial Comments: The patient is a 39-year-old female with past medical history of bariatric surgery who presents to the emergency room with reported right lower quadrant abdominal pain and vaginal discharge. Face the pain has been present since yesterday. She describes it as a cramping sensation without radiation in the right lower quadrant. She has had associated brown vaginal discharge. Denies concern for sexually transmitted infections. She has had salpingectomy and therefore denies possibility of . She reports that she had a normal menstrual cycle earlier this week. She denies any fevers or chills. No nausea or vomiting. Denies any changes in her urination to include dysuria, hematuria or difficulty voiding. Denies diarrhea, constipation, melanotic stools or hematochezia. No ripping or tearing sensation to her back. Denies any pain in her lower extremities. There are no alleviating, precipitating or modifying factors - Related Data Home Medications Medication Instructions Recorded Confirmed Multivitamins, Thera [Multivitamin 1 tab PO DAILY 06/08/14 05/09/19 (formulary)] lamoTRIgine 200 mg PO BID 02/16/16 05/09/19 Desvenlafaxine Succinate [Pristiq] 50 mg PO DAILY 05/07/19 05/09/19 Loratadine [Claritin] 10 mg PO HS 05/09/19 05/09/19 Previous Rx's Medication Instructions Recorded Omeprazole 40 mg PO DAILY #90 capsule. 07/12/16 metroNIDAZOLE [Flagyl] 500 mg PO BID #14 tab 05/09/19 Allergies Allergy/AdvReac Type Severity Reaction Status Date / Time No Known Allergies Allergy Verified 05/09/19 15:15 Review of Systems ROS Statement: Those systems with pertinent positive or pertinent negative responses have been documented in the HPI. ROS Other: All systems not noted in ROS Statement are negative. Past Medical History Past Medical History: GERD/Reflux Additional Past Medical History / Comment(s): past history of hypertension, as of 03/13/16 has no complaints of GERD> History of Any Multi-Drug Resistant Organisms: None Reported Past Surgical History: Bariatric Surgery, Cholecystectomy, Tubal Ligation Additional Past Surgical History / Comment(s): LAPAROTOMY, BILATERAL FALLOPIAN TUBES REMOVED ,Sleeve gastrectomy 12/12/14, paniculectomy Jul 2016 Past Anesthesia/Blood Transfusion Reactions: No Reported Reaction Past Psychological History: Anxiety, Bipolar, Depression, PTSD Smoking Status: Never smoker Past Alcohol Use History: Occasional Past Drug Use History: None Reported - Past Family History Mother Family Medical History: No Reported History Additional Family Medical History / Comment(s): colitis General Exam Limitations: no limitations General appearance: alert, in no apparent distress Head exam: Present: atraumatic, normocephalic, normal inspection Eye exam: Present: normal appearance, PERRL, EOMI. Absent: scleral icterus, conjunctival injection, periorbital swelling ENT exam: Present: normal exam, mucous membranes moist Neck exam: Present: normal inspection. Absent: tenderness, meningismus, lymphadenopathy Respiratory exam: Present: normal lung sounds bilaterally. Absent: respiratory distress, wheezes, rales, rhonchi, stridor Cardiovascular Exam: Present: regular rate, normal rhythm, normal heart sounds. Absent: systolic murmur, diastolic murmur, rubs, gallop, clicks GI/Abdominal exam: Present: soft, normal bowel sounds. Absent: distended, tenderness, guarding, rebound, rigid External exam: Present: normal external exam. Absent: erythema, swelling, lesions, lacerations Speculum exam: Present: normal speculum exam, cervical discharge, vaginal bleeding. Absent: laceration Extremities exam: Present: normal inspection, full ROM, normal capillary refill. Absent: tenderness, pedal edema, joint swelling, calf tenderness Back exam: Present: normal inspection Neurological exam: Present: alert, oriented X3, CN II-XII intact Psychiatric exam: Present: normal affect, normal mood Skin exam: Present: warm, dry, intact, normal color. Absent: rash Course Vital Signs 05/09/19 05/09/19 05/09/19 14:10 16:13 17:54 Temperature 97.8 F Pulse Rate 105 H 77 78 Respiratory 18 18 18 Rate Blood Pressure 117/78 126/79 133/83 O2 Sat by Pulse 99 99 100 Oximetry Medical Decision Making - Medical Decision Making Upon arrival the patient was placed in room 25. There are history of physical exam was performed. I did recommend laboratory studies, CT of the patient's abdomen and pelvis and a pelvic ultrasound.Laboratory studies demonstrated a white blood cell count of 7.6, hemoglobin 14, platelets 367. CMP is unremarkable. HCG is not detected. Urinalysis is negative. Trichomonas is negative. Transvaginal ultrasound demonstrates bilateral simple ovarian cysts. No solid adnexal mass. No evidence of ovarian torsion. CT of the patient's abdomen and pelvis demonstrates bilateral ovarian cysts. There is mild thickening of the sigmoid colon that could relate to a mild nonspecific colitis. I discussed these results with the patient. I did perform a pelvic exa mination which does cause the patient some discomfort. She does have some brown vaginal discharge. Because this I did recommend treatment for cervicitis. The patient does agree to this. She was given a gram of Rocephin IV. She is also given 1000 mg of azithromycin orally. I will provide the patient with a prescription for Flagyl to cover for BV. The patient will be discharged home at this time. I did give her follow-up information for an [employer]. The patient has any new or worsening symptoms she should return to the emergency room in sooner. The patient understood and she was discharged home in stable condition - Lab Data Result diagrams: 05/09/19 16:06 05/09/19 16:06 Lab Results 05/09/19 05/09/19 05/09/19 Range/Units 16:00 16:00 16:06 WBC 7.6 (3.8-10.6) k/uL RBC 4.54 (3.80-5.40) m/uL Hgb 14.0 (11.4-16.0) gm/dL Hct 41.2 (34.0-46.0) % MCV 90.8 (80.0-100.0) fL MCH 30.8 (25.0-35.0) pg MCHC 33.9 (31.0-37.0) g/dL RDW 13.0 (11.5-15.5) % Plt Count 367 (150-450) k/uL Neutrophils % 62 % Lymphocytes % 28 % Monocytes % 4 % Eosinophils % 3 % Basophils % 0 % Neutrophils # 4.7 (1.3-7.7) k/uL Lymphocytes # 2.1 (1.0-4.8) k/uL Monocytes # 0.3 (0-1.0) k/uL Eosinophils # 0.2 (0-0.7) k/uL Basophils # 0.0 (0-0.2) k/uL Sodium (137-145) mmol/L Potassium (3.5-5.1) mmol/L Chloride (98-107) mmol/L Carbon Dioxide (22-30) mmol/L Anion Gap mmol/L BUN (7-17) mg/dL Creatinine (0.52-1.04) mg/dL Est GFR (CKD-EPI)AfAm (>60 ml/min/1.73 sqM) Est GFR (CKD-EPI)NonAf (>60 ml/min/1.73 sqM) Glucose (74-99) mg/dL Plasma Lactic Acid Emre (0.7-2.0) mmol/L Calcium (8.4-10.2) mg/dL Total Bilirubin (0.2-1.3) mg/dL AST (14-36) U/L ALT (9-52) U/L Alkaline Phosphatase (38-126) U/L Total Protein (6.3-8.2) g/dL Albumin (3.5-5.0) g/dL Lipase (23-300) U/L Urine Color Colorless Urine Appearance Clear (Clear) Urine pH 6.0 (5.0-8.0) Ur Specific [place] 1.003 (1.001-1.035) Urine Protein Negative (Negative) Urine Glucose (UA) Negative (Negative) Urine Ketones Negative (Negative) Urine Blood Negative (Negative) Urine Nitrite Negative (Negative) Urine Bilirubin Negative (Negative) Urine Urobilinogen <2.0 (<2.0) mg/dL Ur Leukocyte Esterase Negative (Negative) Urine HCG, Qual Not Detected (Not Detectd) Chlamydia Source Chlamydia DNA (PCR) (Neg,Equiv) N. gonorrhoeae Source N.gonorrhoeae DNA Probe (Neg,Equiv) Trichomonas Ag (Rapid) (Negative) 05/09/19 05/09/19 05/09/19 Range/Units 16:06 16:06 18:23 WBC (3.8-10.6) k/uL RBC (3.80-5.40) m/uL Hgb (11.4-16.0) gm/dL Hct (34.0-46.0) % MCV (80.0-100.0) fL MCH (25.0-35.0) pg MCHC (31.0-37.0) g/dL RDW (11.5-15.5) % Plt Count (150-450) k/uL Neutrophils % % Lymphocytes % % Monocytes % % Eosinophils % % Basophils % % Neutrophils # (1.3-7.7) k/uL Lymphocytes # (1.0-4.8) k/uL Monocytes # (0-1.0) k/uL Eosinophils # (0-0.7) k/uL Basophils # (0-0.2) k/uL Sodium 140 (137-145) mmol/L Potassium 4.6 (3.5-5.1) mmol/L Chloride 103 (98-107) mmol/L Carbon Dioxide 27 (22-30) mmol/L Anion Gap 10 mmol/L BUN 16 (7-17) mg/dL Creatinine 0.68 (0.52-1.04) mg/dL Est GFR (CKD-EPI)AfAm >90 (>60 ml/min/1.73 sqM) Est GFR (CKD-EPI)NonAf >90 (>60 ml/min/1.73 sqM) Glucose 87 (74-99) mg/dL Plasma Lactic Acid Emre 0.9 (0.7-2.0) mmol/L Calcium 9.3 (8.4-10.2) mg/dL Total Bilirubin 0.2 (0.2-1.3) mg/dL AST 26 (14-36) U/L ALT 16 (9-52) U/L Alkaline Phosphatase 78 (38-126) U/L Total Protein 7.6 (6.3-8.2) g/dL Albumin 4.3 (3.5-5.0) g/dL Lipase 118 (23-300) U/L Urine Color Urine Appearance (Clear) Urine pH (5.0-8.0) Ur Specific [place] (1.001-1.035) Urine Protein (Negative) Urine Glucose (UA) (Negative) Urine Ketones (Negative) Urine Blood (Negative) Urine Nitrite (Negative) Urine Bilirubin (Negative) Urine Urobilinogen (<2.0) mg/dL Ur Leukocyte Esterase (Negative) Urine HCG, Qual (Not Detectd) Chlamydia Source Vagina Chlamydia DNA (PCR) Negative (Neg,Equiv) N. gonorrhoeae Source N.gonorrhoeae DNA Probe (Neg,Equiv) Trichomonas Ag (Rapid) (Negative) 05/09/19 05/09/19 Range/Units 18:23 18:23 WBC (3.8-10.6) k/uL RBC (3.80-5.40) m/uL Hgb (11.4-16.0) gm/dL Hct (34.0-46.0) % MCV (80.0-100.0) fL MCH (25.0-35.0) pg MCHC (31.0-37.0) g/dL RDW (11.5-15.5) % Plt Count (150-450) k/uL Neutrophils % % Lymphocytes % % Monocytes % % Eosinophils % % Basophils % % Neutrophils # (1.3-7.7) k/uL Lymphocytes # (1.0-4.8) k/uL Monocytes # (0-1.0) k/uL Eosinophils # (0-0.7) k/uL Basophils # (0-0.2) k/uL Sodium (137-145) mmol/L Potassium (3.5-5.1) mmol/L Chloride (98-107) mmol/L Carbon Dioxide (22-30) mmol/L Anion Gap mmol/L BUN (7-17) mg/dL Creatinine (0.52-1.04) mg/dL Est GFR (CKD-EPI)AfAm (>60 ml/min/1.73 sqM) Est GFR (CKD-EPI)NonAf (>60 ml/min/1.73 sqM) Glucose (74-99) mg/dL Plasma Lactic Acid Emre (0.7-2.0) mmol/L Calcium (8.4-10.2) mg/dL Total Bilirubin (0.2-1.3) mg/dL AST (14-36) U/L ALT (9-52) U/L Alkaline Phosphatase (38-126) U/L Total Protein (6.3-8.2) g/dL Albumin (3.5-5.0) g/dL Lipase (23-300) U/L Urine Color Urine Appearance (Clear) Urine pH (5.0-8.0) Ur Specific [place] (1.001-1.035) Urine Protein (Negative) Urine Glucose (UA) (Negative) Urine Ketones (Negative) Urine Blood (Negative) Urine Nitrite (Negative) Urine Bilirubin (Negative) Urine Urobilinogen (<2.0) mg/dL Ur Leukocyte Esterase (Negative) Urine HCG, Qual (Not Detectd) Chlamydia Source Chlamydia DNA (PCR) (Neg,Equiv) N. gonorrhoeae Source Vagina N.gonorrhoeae DNA Probe Negative (Neg,Equiv) Trichomonas Ag (Rapid) Negative (Negative) Disposition Clinical Impression: Abdominal pain Disposition: HOME SELF-CARE Condition: Stable Instructions (If sedation given, give patient instructions): Pelvic Pain in Women (ED) Additional Instructions: Please follow-up with your PCP in 2-4 days. Return to the ER for any new or w orsening symptoms Prescriptions: metroNIDAZOLE [Flagyl] 500 mg PO BID #14 tab Is patient prescribed a controlled substance at d/c from ED?: No Referrals: Stevie Friedman III, MD [Primary Care Provider] - 1-2 days Corina Esparza MD [STAFF PHYSICIAN] - 1-2 days Time of Disposition: 18:12
[2019-05-09 16:19] LABS: Basophils % (A) 0 %; Eosinophils # (A) 0.2 k/uL (0-0.7); Eosinophils % (A) 3 %; HCT 41.2 % (34.0-46.0); Lymphocytes # (A) 2.1 k/uL (1.0-4.8); Lymphocytes % (A) 28 %; MCH 30.8 pg (25.0-35.0); MCHC 33.9 g/dL (31.0-37.0); MCV 90.8 fL (80.0-100.0); Mean Platelet Volume 6.4; Monocytes # (A) 0.3 k/uL (0-1.0); Monocytes % (A) 4 %; Neutrophils # (A) 4.7 k/uL (1.3-7.7); Neutrophils % (A) 62 %; Platelet Count 367 k/uL (150-450); RBC 4.54 m/uL (3.80-5.40); WBC 7.6 k/uL (3.8-10.6)
[2019-05-09 16:24] LABS: Appearance,Urine Clear (Clear); Bilirubin,Urine Negative (Negative); Blood,Urine Negative (Negative); Color,Urine Colorless; Glucose,Urine (UA) Negative (Negative); Ketones,Urine Negative (Negative); Leukocyte Esterase,Urine Negative (Negative); Nitrite,Urine Negative (Negative); Protein,Urine Negative (Negative); Specific Gravity,Urine 1.003 (1.001-1.035); Urobilinogen,Urine <2.0 mg/dL (<2.0)
[2019-05-09 16:30] LABS: ALT 16 U/L (9-52); AST 26 U/L (14-36); African American GFR (CKD) >90 (>60 ml/min/1.73 sqM); Albumin 4.3 g/dL (3.5-5.0); Alkaline Phosphatase 78 U/L (38-126); Anion Gap 10 mmol/L; Blood Urea Nitrogen 16 mg/dL (7-17); Calcium 9.3 mg/dL (8.4-10.2); Carbon Dioxide 27 mmol/L (22-30); Chloride 103 mmol/L (98-107); Glucose 87 mg/dL (74-99); Potassium 4.6 mmol/L (3.5-5.1); Sodium 140 mmol/L (137-145); Total Bilirubin 0.2 mg/dL (0.2-1.3); Total Protein 7.6 g/dL (6.3-8.2)
--- NOTE | 2019-05-09 16:53 | CT ---
EXAMINATION TYPE: CT abdomen pelvis w con DATE OF EXAM: 05/09/2019 COMPARISON: 05/25/2018 HISTORY: RT side abdominal pain. Hx bariatric sx, ekta, tubal ligation. CT DLP: 1508 mGycm Automated exposure control for dose reduction was used. TECHNIQUE: Helical acquisition of images was performed from the lung bases through the pelvis. CONTRAST: Performed without Oral Contrast and with IV Contrast, patient injected with 100 mL of Isovue 300. FINDINGS: Lung bases are clear. There is no pleural effusion. There is previous gastric bariatric surgery. Ther e is no pericardial effusion. Liver spleen pancreas appear normal. Bile ducts are not dilated. Gallbl adder is absent. There is no adrenal mass. There is 2 mm calculus lateral left kidney. Kidneys show satisfactory contr ast opacification. There is no hydronephrosis. There is 2 cm cortical cyst anterior right kidney. Ure ters are not dilated. There is no retroperitoneal adenopathy. Bladder distends smoothly. There is no inguinal hernia. Uteru s is anteverted. There is no free fluid in the pelvis. Lumbar vertebra have normal alignment. Disc sp aces are fairly normal. There is no compression fracture. Bony pelvis appears intact. There is 3.5 cm cyst on the right ovary. There is 2 cm cyst left ovary. Appendix appears normal. There is no mesente mejia edema. There is no ascites or free air. There is no sign of a bowel obstruction. There is mild wall thickening of the sigmoid colon. IMPRESSION: BILATERAL OVARIAN CYSTS. CYSTS OR INCREASED COMPARED TO OLD EXAM. THERE IS MILD THICKENING OF THE SIG MOID COLON THAT COULD RELATE TO A MILD NONSPECIFIC COLITIS THAT IS A CHANGE COMPARED TO OLD EXAM. NORMAL APPENDIX. NONOBSTRUCTING LEFT RENAL CALCULUS UNCHANGED.
--- NOTE | 2019-05-09 17:51 | US ---
EXAMINATION TYPE: US transvaginal DATE OF EXAM: 05/09/2019 COMPARISON: CT & US CLINICAL HISTORY: RLQ pain. RLQ pain TECHNIQUE: Transvaginal (TV). Transvaginal sonographic images of the pelvis were acquired. Date of LMP: 05/01/2019 EXAM MEASUREMENTS: Uterus: 10.7 x 5.1 x 5.9 cm Endometrial Stripe: 0.7 cm Right Ovary: 5.2 x 3.9 x 4.4 cm Left Ovary: 2.2 x 2.6 x 2.1 cm 1. Uterus: Anteverted Heterogeneous, Nabothian cysts in cervix 2. Endometrium: wnl 3. Right Ovary: Cyst= 3.5 x 3.4 x 3.8 cm 4. Left Ovary: Cyst= 1.5 x 1.6 x 1.5 cm Spectral, color and waveform doppler imaging shows good arterial and venous flow within the ovaries ; there is no evidence for ovarian torsion. 5. Bilateral Adnexa: wnl 6. Posterior cul-de-sac: wnl IMPRESSION: Bilateral simple ovarian cysts. No solid adnexal mass. No evidence of ovarian torsion.
[2019-05-09] MEDS ORDERED: AZITHROMYCIN 250 MG TAB PO STA (18:10)
[2019-05-09 18:12] VITALS: BP 133/83; PULSE 78
[2019-05-09] MEDS ORDERED: cefTRIAXone IN SWFI 1,000 MG/10 ML SYRINGE IVP STA (18:26)
[2019-05-11 15:00] LABS: C. trachomatis,PCR Negative (Neg,Equiv); Chlamydia trachomatis Source Vagina
[2019-05-11 15:02] LABS: N. gonorrhoeae,PCR Negative (Neg,Equiv); Neisseria Source Vagina
== END 2019-05-09 18:40 | disposition home or self-care (01) ==
LOC: EC 13:53
DX: R10.31 Right lower quadrant pain (principal); N83.201 Unspecified ovarian cyst, right side; N83.202 Unspecified ovarian cyst, left side; F31.9 Bipolar disorder, unspecified; F41.9 Anxiety disorder, unspecified; Z32.02 Encounter for pregnancy test, result negative; F43.10 Post-traumatic stress disorder, unspecified; Z79.899 Other long term (current) drug therapy; Z90.49 Acquired absence of other specified parts of digestive tract; Z98.84 Bariatric surgery status
CPT/HCPCS: 36415; 80053; 83605; 83690; 85025; 81003; 81025; 87808; 87491; 87591; 87070; 93975; 76830; 74177; 99284; 96374; 96375 ×2; 96361 ×2; J2405; J0696; J1885

== ENCOUNTER → 2019-05-19 | Outpatient (CLI) | payer BC ==
[2019-05-19 14:16] VITALS: BP 124/83; PULSE 80; TEMP 97.5; BMI 34.3
--- NOTE | 2019-05-19 14:26 | P.PN ---
Subjective Progress Note Date: 05/19/19 DATE OF SERVICE: 05/19/2019 CHIEF COMPLAINT: Status post sleeve gastrectomy HISTORY OF PRESENT ILLNESS: Kaiser Murray is a 39-year-old female status post sleeve gastrectomy 12/12/2014. She is over 4 years out. She comes in with troubles with her weight. She comes in with new problems of abdominal pain. She comes in with weight gain of 1 pound since her last visit. Highest weight for her 5-foot 6-inch frame was 300 pounds. Her ideal body weight is 154 pounds. Today she comes in weighing 213 pounds from 212 pounds, 2 weeks ago. She has gained 1 pound in 2 weeks. Lifetime weight loss is 87 pounds. Percent excess weight loss is 60% lifetime. Body mass index reduced from 48.5 down to 34.4. PHYSICAL EXAM: VITAL SIGNS: 5 feet 6 inches, 213 pounds, body mass index 34.4 Vital Signs Temp 97.5 F L 05/19/19 14:12 Pulse 80 05/19/19 14:12 Resp BP 124/83 05/19/19 14:12 Pulse Ox ABDOMEN: Soft, Nondistended. Minimal right lower quadrant tenderness. No peritonitis. No hernias. GENERAL: Well-developed, pleasant female in no acute distress. MUSCULOSKELETAL: No clubbing, cyanosis. No edema CARDIOVASCULAR: Regular rate. Regular rhythm HEENT: No scleral icterus. Extraocular movements grossly intact. Moist buccal mucosa. NECK: Supple without lymphadenopathy. CHEST: Unlabored respirations with equal bilateral excursions. NEURO: No focal or lateralizing signs. SKIN: Well perfused. Good skin turgor. PSYCH: Alert oriented person place and time. LABS: TSH normal, Vitamin D is low. ASSESSMENT: 1. Morbid obesity due to excess calories, 48.5 initial 2. Status post sleeve gastrectomy. 3. Morbid obesity, body mass index is 34.2 4. Dietary surveillance and counseling 5. Iron deficiency anemia 6. Depressive disorder. 7. Right lower quadrant pain. PLAN: 1. Recommend food tracking 2. She reports eating processed foods. Recommend cut back on freezer foods which has high risk for sodium. Objective - Vital Signs Vital signs: Vital Signs Temp 97.5 F L 05/19/19 14:12 Pulse 80 05/19/19 14:12 Resp BP 124/83 05/19/19 14:12 Pulse Ox Intake & Output 05/18/19 05/19/19 05/19/19 18:59 06:59 18:59 Weight 96.615 kg
== END | disposition home or self-care (01) ==
LOC: BARWHC3 13:55
PROVIDERS: ATTEND Surgery Plastic and Reconstructive Surgery
DX: Z48.815 Encounter for surgical aftercare following surgery on the digestive system (principal); E66.01 Morbid (severe) obesity due to excess calories; D50.9 Iron deficiency anemia, unspecified; F32.9 Major depressive disorder, single episode, unspecified; R10.31 Right lower quadrant pain; Z68.34 Body mass index [BMI] 34.0-34.9, adult; Z98.84 Bariatric surgery status; Z71.3 Dietary counseling and surveillance
CPT/HCPCS: 99211

== ENCOUNTER 2019-07-16 17:40 | Emergency (ER) | payer BC, MEDICARE ==
[2019-07-16 17:54] VITALS: TEMP 97.8
--- NOTE | 2019-07-16 18:03 | ED ---
Female Urogenital HPI - General Chief complaint: Urogenital Stated complaint: Blood in urine Time Seen by Provider: 07/16/19 17:55 Source: patient Mode of arrival: ambulatory Limitations: no limitations - History of Present Illness Initial comments: patient is a 39-year-old female presenting to emergency Department with a chief complaint of possible UTI. Patient reports about 5 days ago she developed a burning sensation with increased urgency or frequency when urinating. Patient reports she went to her primary care and was given antibiotics for a urinary tract infection. She states the doctor informed her that no bacteria grown a culture. Patient reports all her symptoms have resolved however the dysuria continues to persist until yesterday. she also noticed some blood in the urine yesterday but not today. Patient also reported bilateral lower back pain without any radiation. Denies taking any medication to alleviate the symptoms.denies night sweats fevers or chills. no concern for STDs.does report nausea but no vomiting or diarrhea Last Menstrual Period: 06/18/19 - Related Data Home Medications Medication Instructions Recorded Confirmed Multivitamins, Thera [Multivitamin 1 tab PO DAILY 06/08/14 05/19/19 (formulary)] lamoTRIgine 200 mg PO BID 02/16/16 05/19/19 Desvenlafaxine Succinate [Pristiq] 50 mg PO DAILY 05/07/19 05/19/19 Loratadine [Claritin] 10 mg PO HS 05/09/19 05/19/19 Cholecalciferol (Vitamin D3) 10,000 unit PO DAILY 05/19/19 05/19/19 [Vitamin D3] Previous Rx's Medication Instructions Recorded Omeprazole 40 mg PO DAILY #90 bee. 07/12/16 metroNIDAZOLE [Flagyl] 500 mg PO BID #14 tab 05/09/19 Ondansetron Odt [Zofran Odt] 4 mg PO Q8HR PRN #10 tab 07/16/19 Allergies Allergy/AdvReac Type Severity Reaction Status Date / Time No Known Allergies Allergy Verified 07/16/19 17:54 Review of Systems ROS Statement: Those systems with pertinent positive or pertinent negative responses have been documented in the HPI. ROS Other: All systems not noted in ROS Statement are negative. Past Medical History Past Medical History: GERD/Reflux Additional Past Medical History / Comment(s): past history of hypertension, as of 03/13/16 has no complaints of GERD> History of Any Multi-Drug Resistant Organisms: None Reported Past Surgical History: Bariatric Surgery, Cholecystectomy, Tubal Ligation Additional Past Surgical History / Comment(s): LAPAROTOMY, BILATERAL FALLOPIAN TUBES REMOVED ,Sleeve gastrectomy 12/12/14, paniculectomy Jul 2016 Past Anesthesia/Blood Transfusion Reactions: No Reported Reaction Past Psychological History: Anxiety, Bipolar, Depression, PTSD Smoking Status: Never smoker Past Alcohol Use History: Occasional Past Drug Use History: None Reported - Past Family History Mother Family Medical History: No Reported History Additional Family Medical History / Comment(s): colitis General Exam Limitations: no limitations General appearance: alert, in no apparent distress, obese Head exam: Present: atraumatic, normocephalic, normal inspection Eye exam: Present: normal appearance Pupils: Present: normal accommodation ENT exam: Present: normal exam, mucous membranes moist Neck exam: Present: normal inspection, full ROM Respiratory exam: Present: normal lung sounds bilaterally Cardiovascular Exam: Present: regular rate, normal rhythm, normal heart sounds Extremities exam: Present: normal inspection, full ROM Back exam: Present: normal inspection, full ROM, CVA tenderness (R) (mild), CVA tenderness (L) (mild) Neurological exam: Present: alert, oriented X3 Psychiatric exam: Present: normal affect, normal mood Skin exam: Present: warm, dry, intact, normal color Course Vital Signs 07/16/19 07/16/19 17:52 19:26 Temperature 97.8 F 97.8 F Pulse Rate 80 72 Respiratory 16 18 Rate Blood Pressure 117/84 115/87 O2 Sat by Pulse 100 98 Oximetry Medical Decision Making - Medical Decision Making patient is a 39-year-old female presenting to emergency Department with a chief complaint of possible UTI. On exam patient has mild bilateral CVA. No abdominal pain. Patient not concerned for STDs. No vaginal itching or discharge. CBC CMP and UA are unremarkable. Patient was given antiemetics and fluids. Reevaluation patient reports improvement in her symptoms. Patient has no dysuria today she only had a yesterday along with some blood in the urine she noticed. I suspect the patient had passed a kidney stone which was already detected on a CAT scan 2 months ago. Patient advised to follow-up with primary care. Strict return parameters were thoroughly discussed with patient is understanding and agreeable. Patient discharged with Zofran. Case discussed with physician. - Lab Data Result diagrams: 07/16/19 18:21 07/16/19 18:21 Lab Results 07/16/19 07/16/19 07/16/19 Range/Units 18:00 18:00 18:21 WBC 7.8 (3.8-10.6) k/uL RBC 4.58 (3.80-5.40) m/uL Hgb 13.6 (11.4-16.0) gm/dL Hct 41.6 (34.0-46.0) % MCV 90.7 (80.0-100.0) fL MCH 29.7 (25.0-35.0) pg MCHC 32.7 (31.0-37.0) g/dL RDW 12.9 (11.5-15.5) % Plt Count 325 (150-450) k/uL Neutrophils % 63 % Lymphocytes % 28 % Monocytes % 5 % Eosinophils % 2 % Basophils % 0 % Neutrophils # 4.9 (1.3-7.7) k/uL Lymphocytes # 2.2 (1.0-4.8) k/uL Monocytes # 0.4 (0-1.0) k/uL Eosinophils # 0.1 (0-0.7) k/uL Basophils # 0.0 (0-0.2) k/uL Sodium (137-145) mmol/L Potassium (3.5-5.1) mmol/L Chloride (98-107) mmol/L Carbon Dioxide (22-30) mmol/L Anion Gap mmol/L BUN (7-17) mg/dL Creatinine (0.52-1.04) mg/dL Est GFR (CKD-EPI)AfAm (>60 ml/min/1.73 sqM) Est GFR (CKD-EPI)NonAf (>60 ml/min/1.73 sqM) Glucose (74-99) mg/dL Calcium (8.4-10.2) mg/dL Total Bilirubin (0.2-1.3) mg/dL AST (14-36) U/L ALT (4-34) U/L Alkaline Phosphatase (38-126) U/L Total Protein (6.3-8.2) g/dL Albumin (3.5-5.0) g/dL Urine Color Light Yellow Urine Appearance Clear (Clear) Urine pH 6.5 (5.0-8.0) Ur Specific [place] 1.005 (1.001-1.035) Urine Protein Negative (Negative) Urine Glucose (UA) Negative (Negative) Urine Ketones Negative (Negative) Urine Blood Negative (Negative) Urine Nitrite Negative (Negative) Urine Bilirubin Negative (Negative) Urine Urobilinogen <2.0 (<2.0) mg/dL Ur Leukocyte Esterase Negative (Negative) Urine HCG, Qual Not Detected (Not Detectd) 07/16/19 Range/Units 18:21 WBC (3.8-10.6) k/uL RBC (3.80-5.40) m/uL Hgb (11.4-16.0) gm/dL Hct (34.0-46.0) % MCV (80.0-100.0) fL MCH (25.0-35.0) pg MCHC (31.0-37.0) g/dL RDW (11.5-15.5) % Plt Count (150-450) k/uL Neutrophils % % Lymphocytes % % Monocytes % % Eosinophils % % Basophils % % Neutrophils # (1.3-7.7) k/uL Lymphocytes # (1.0-4.8) k/uL Monocytes # (0-1.0) k/uL Eosinophils # (0-0.7) k/uL Basophils # (0-0.2) k/uL Sodium 138 (137-145) mmol/L Potassium 4.1 (3.5-5.1) mmol/L Chloride 102 (98-107) mmol/L Carbon Dioxide 28 (22-30) mmol/L Anion Gap 8 mmol/L BUN 12 (7-17) mg/dL Creatinine 0.59 (0.52-1.04) mg/dL Est GFR (CKD-EPI)AfAm >90 (>60 ml/min/1.73 sqM) Est GFR (CKD-EPI)NonAf >90 (>60 ml/min/1.73 sqM) Glucose 99 (74-99) mg/dL Calcium 9.7 (8.4-10.2) mg/dL Total Bilirubin 0.4 (0.2-1.3) mg/dL AST 27 (14-36) U/L ALT 24 (4-34) U/L Alkaline Phosphatase 68 (38-126) U/L Total Protein 7.6 (6.3-8.2) g/dL Albumin 4.4 (3.5-5.0) g/dL Urine Color Urine Appearance (Clear) Urine pH (5.0-8.0) Ur Specific [place] (1.001-1.035) Urine Protein (Negative) Urine Glucose (UA) (Negative) Urine Ketones (Negative) Urine Blood (Negative) Urine Nitrite (Negative) Urine Bilirubin (Negative) Urine Urobilinogen (<2.0) mg/dL Ur Leukocyte Esterase (Negative) Urine HCG, Qual (Not Detectd) Disposition Clinical Impression: Dysuria Disposition: HOME SELF-CARE Condition: Stable Additional Instructions: please follow with primary care. Please return to emergency department if symptoms worsen. Prescriptions: Ondansetron Odt [Zofran Odt] 4 mg PO Q8HR PRN #10 tab PRN Reason: Nausea Is patient prescribed a controlled substance at d/c from ED?: No Referrals: Stevie Friedman III, MD [Primary Care Provider] - 1-2 days Time of Disposition: 19:33
[2019-07-16] MEDS ORDERED: ONDANSETRON 4 MG/2 ML VIAL IVP STA (18:09)
[2019-07-16] MEDS ORDERED: SODIUM CHLORIDE 0.9% 1,000 ML IV ONE (18:09)
[2019-07-16 18:27] LABS: Appearance,Urine Clear (Clear); Bilirubin,Urine Negative (Negative); Blood,Urine Negative (Negative); Color,Urine Light Yellow; Glucose,Urine (UA) Negative (Negative); Ketones,Urine Negative (Negative); Leukocyte Esterase,Urine Negative (Negative); Nitrite,Urine Negative (Negative); PH, Urine 6.5 (5.0-8.0); Protein,Urine Negative (Negative); Specific Gravity,Urine 1.005 (1.001-1.035); Urobilinogen,Urine <2.0 mg/dL (<2.0)
[2019-07-16 18:42] LABS: Basophils % (A) 0 %; Eosinophils # (A) 0.1 k/uL (0-0.7); Eosinophils % (A) 2 %; HCT 41.6 % (34.0-46.0); HGB 13.6 gm/dL (11.4-16.0); Lymphocytes # (A) 2.2 k/uL (1.0-4.8); Lymphocytes % (A) 28 %; MCH 29.7 pg (25.0-35.0); MCHC 32.7 g/dL (31.0-37.0); MCV 90.7 fL (80.0-100.0); Mean Platelet Volume 8.1; Monocytes # (A) 0.4 k/uL (0-1.0); Monocytes % (A) 5 %; Neutrophils # (A) 4.9 k/uL (1.3-7.7); Neutrophils % (A) 63 %; Platelet Count 325 k/uL (150-450); RBC 4.58 m/uL (3.80-5.40); RDW 12.9 % (11.5-15.5); WBC 7.8 k/uL (3.8-10.6)
[2019-07-16 18:57] LABS: ALT 24 U/L (4-34); AST 27 U/L (14-36); African American GFR (CKD) >90 (>60 ml/min/1.73 sqM); Albumin 4.4 g/dL (3.5-5.0); Alkaline Phosphatase 68 U/L (38-126); Anion Gap 8 mmol/L; Blood Urea Nitrogen 12 mg/dL (7-17); Calcium 9.7 mg/dL (8.4-10.2); Carbon Dioxide 28 mmol/L (22-30); Chloride 102 mmol/L (98-107); Glucose 99 mg/dL (74-99); Non-African American GFR(CKD) >90 (>60 ml/min/1.73 sqM); Potassium 4.1 mmol/L (3.5-5.1); Sodium 138 mmol/L (137-145); Total Bilirubin 0.4 mg/dL (0.2-1.3); Total Protein 7.6 g/dL (6.3-8.2)
[2019-07-16] MEDS ORDERED: ONDANSETRON 4 MG ODT STARTER PACK 2 TAB BTL PO STA (19:27)
[2019-07-16 19:28] VITALS: BP 115/87; PULSE 72; RESP 18
== END 2019-07-16 19:45 | disposition home or self-care (01) ==
LOC: EC 17:40
DX: R30.0 Dysuria (principal); M54.5 Low back pain; R11.0 Nausea; F31.9 Bipolar disorder, unspecified; F41.9 Anxiety disorder, unspecified; Z79.899 Other long term (current) drug therapy
CPT/HCPCS: 36415; 80053; 85025; 81003; 81025; 99283; 96374; 96361; J2405; S0119

== ENCOUNTER → 2020-02-18 | Outpatient (CLI) | payer BC | END | disposition home or self-care (01) | LOC: LABWHC1 12:42 | PROVIDERS: ATTEND Family Medicine | DX: Z20.828 Contact with and (suspected) exposure to other viral communicable diseases (principal) | CPT/HCPCS: U0003; C9803 ==

== ENCOUNTER 2020-02-22 23:04 | Emergency (ER) | payer BC ==
[2020-02-22] MEDS ORDERED: PANTOPRAZOLE 40 MG/10 ML VIAL IVP STA (23:46)
[2020-02-22] MEDS ORDERED: MORPHINE SULFATE 4 MG/ML SYRINGE IV STA (23:46)
[2020-02-22] MEDS ORDERED: SODIUM CHLORIDE 0.9% 1,000 ML IV STA (23:46)
[2020-02-22] MEDS ORDERED: ONDANSETRON 4 MG/2 ML VIAL IVP STA (23:46)
--- NOTE | 2020-02-22 23:48 | ED ---
Abdominal Pain HPI - General Chief Complaint: Abdominal Pain Stated Complaint: Right abd pain Time Seen by Provider: 02/22/20 23:17 Source: patient, RN notes reviewed, old records reviewed Mode of arrival: ambulatory - History of Present Illness Initial Comments: This is a 39-year-old female DF for evaluation of abdominal pain. Patient does have a history of persistent abdominal pain mild nausea no vomiting no fevers. History is significant for gallbladder removal of bariatric surgery. She states both full surgeries have gone well and denying any fevers or travel history no diarrheal issues. Patient does state that she has history of kidney stones and believes maybe recurrent kidney stones MD Complaint: abdominal pain, flank pain Location: diffuse, L flank, R flank Radiation: none Migration to: epigastric Severity: moderate Severity scale (1-10): 7 Quality: fullness, sharp Consistency: intermittent Improves With: nothing Worsens With: nothing Associated Symptoms: nausea - Related Data Home Medications Medication Instructions Recorded Confirmed Multivitamins, Thera [Multivitamin 1 tab PO DAILY 06/08/14 05/19/19 (formulary)] lamoTRIgine 200 mg PO BID 02/16/16 05/19/19 Desvenlafaxine Succinate [Pristiq] 50 mg PO DAILY 05/07/19 05/19/19 Loratadine [Claritin] 10 mg PO HS 05/09/19 05/19/19 Cholecalciferol (Vitamin D3) 10,000 unit PO DAILY 05/19/19 05/19/19 [Vitamin D3] Previous Rx's Medication Instructions Recorded Omeprazole 40 mg PO DAILY #90 capsule. 07/12/16 metroNIDAZOLE [Flagyl] 500 mg PO BID #14 tab 05/09/19 Ondansetron Odt [Zofran Odt] 4 mg PO Q8HR PRN #10 tab 07/16/19 Allergies Allergy/AdvReac Type Severity Reaction Status Date / Time No Known Allergies Allergy Verified 07/16/19 17:54 Review of Systems ROS Statement: Those systems with pertinent positive or pertinent negative responses have been documented in the HPI. ROS Other: All systems not noted in ROS Statement are negative. Past Medical History Past Medical History: GERD/Reflux Additional Past Medical History / Comment(s): past history of hypertension, as of 03/13/16 has no complaints of GERD> History of Any Multi-Drug Resistant Organisms: None Reported Past Surgical History: Bariatric Surgery, Cholecystectomy, Tubal Ligation Additional Past Surgical History / Comment(s): LAPAROTOMY, BILATERAL FALLOPIAN TUBES REMOVED ,Sleeve gastrectomy 12/12/14, paniculectomy Jul 2016 Past Anesthesia/Blood Transfusion Reactions: No Reported Reaction Past Psychological History: Anxiety, Bipolar, Depression, PTSD Smoking Status: Never smoker Past Alcohol Use History: None Reported Past Drug Use History: None Reported - Past Family History Mother Family Medical History: No Reported History Additional Family Medical History / Comment(s): colitis General Exam General appearance: alert, in no apparent distress, obese Head exam: Present: atraumatic, normocephalic, normal inspection Eye exam: Present: normal appearance, PERRL, EOMI. Absent: scleral icterus, conjunctival injection, periorbital swelling ENT exam: Present: normal exam, mucous membranes moist Neck exam: Present: normal inspection. Absent: tenderness, meningismus, lymphadenopathy Respiratory exam: Present: normal lung sounds bilaterally. Absent: respiratory distress, wheezes, rales, rhonchi, stridor Cardiovascular Exam: Present: normal rhythm, tachycardia, normal heart sounds. Absent: systolic murmur, diastolic murmur, rubs, gallop, clicks GI/Abdominal exam: Present: soft, normal bowel sounds. Absent: distended, tenderness, guarding, rebound, rigid Extremities exam: Present: normal inspection, full ROM, normal capillary refill. Absent: tenderness, pedal edema, joint swelling, calf tenderness Back exam: Present: normal inspection Neurological exam: Present: alert, oriented X3, CN II-XII intact Psychiatric exam: Present: normal affect, normal mood Skin exam: Present: warm, dry, intact, normal color. Absent: rash Course Vital Signs 02/22/20 02/23/20 23:06 01:00 Temperature 98.4 F 98.5 F Pulse Rate 111 H 78 Respiratory 18 16 Rate Blood Pressure 146/84 122/77 O2 Sat by Pulse 99 98 Oximetry - Reevaluation(s) Reevaluation #1: medical records are reviewed Patient informed results including nonobstructing calculus Pain is controlled Patient is feeling better okay for discharge home Medical Decision Making - Medical Decision Making 39 female DF for abdominal pain persistent abdominal pain nausea no vomiting no diarrhea. CT head and pelvis and labwork is normal patient site better and can be discharged home - Lab Data Result diagrams: 02/22/20 23:51 02/22/20 23:51 Lab Results 02/22/20 02/22/20 02/22/20 Range/Units 23:38 23:38 23:51 WBC 11.0 H (3.8-10.6) k/uL RBC 4.42 (3.80-5.40) m/uL Hgb 13.6 (11.4-16.0) gm/dL Hct 40.0 (34.0-46.0) % MCV 90.5 (80.0-100.0) fL MCH 30.8 (25.0-35.0) pg MCHC 34.0 (31.0-37.0) g/dL RDW 13.1 (11.5-15.5) % Plt Count 372 (150-450) k/uL Neutrophils % 63 % Lymphocytes % 29 % Monocytes % 4 % Eosinophils % 2 % Basophils % 0 % Neutrophils # 6.9 (1.3-7.7) k/uL Lymphocytes # 3.1 (1.0-4.8) k/uL Monocytes # 0.5 (0-1.0) k/uL Eosinophils # 0.2 (0-0.7) k/uL Basophils # 0.0 (0-0.2) k/uL Sodium (137-145) mmol/L Potassium (3.5-5.1) mmol/L Chloride (98-107) mmol/L Carbon Dioxide (22-30) mmol/L Anion Gap mmol/L BUN (7-17) mg/dL Creatinine (0.52-1.04) mg/dL Est GFR (CKD-EPI)AfAm (>60 ml/min/1.73 sqM) Est GFR (CKD-EPI)NonAf (>60 ml/min/1.73 sqM) Glucose (74-99) mg/dL Plasma Lactic Acid Emre (0.7-2.0) mmol/L Calcium (8.4-10.2) mg/dL Total Bilirubin (0.2-1.3) mg/dL AST (14-36) U/L ALT (4-34) U/L Alkaline Phosphatase (38-126) U/L Total Protein (6.3-8.2) g/dL Albumin (3.5-5.0) g/dL Amylase (30-110) U/L Lipase (23-300) U/L Urine Color Yellow Urine Appearance Clear (Clear) Urine pH 6.0 (5.0-8.0) Ur Specific [place] 1.022 (1.001-1.035) Urine Protein Negative (Negative) Urine Glucose (UA) Negative (Negative) Urine Ketones Negative (Negative) Urine Blood Negative (Negative) Urine Nitrite Negative (Negative) Urine Bilirubin Negative (Negative) Urine Urobilinogen <2.0 (<2.0) mg/dL Ur Leukocyte Esterase Negative (Negative) Urine HCG, Qual Not Detected (Not Detectd) 02/22/20 02/22/20 Range/Units 23:51 23:51 WBC (3.8-10.6) k/uL RBC (3.80-5.40) m/uL Hgb (11.4-16.0) gm/dL Hct (34.0-46.0) % MCV (80.0-100.0) fL MCH (25.0-35.0) pg MCHC (31.0-37.0) g/dL RDW (11.5-15.5) % Plt Count (150-450) k/uL Neutrophils % % Lymphocytes % % Monocytes % % Eosinophils % % Basophils % % Neutrophils # (1.3-7.7) k/uL Lymphocytes # (1.0-4.8) k/uL Monocytes # (0-1.0) k/uL Eosinophils # (0-0.7) k/uL Basophils # (0-0.2) k/uL Sodium 136 L (137-145) mmol/L Potassium 3.9 (3.5-5.1) mmol/L Chloride 102 (98-107) mmol/L Carbon Dioxide 25 (22-30) mmol/L Anion Gap 9 mmol/L BUN 17 (7-17) mg/dL Creatinine 0.63 (0.52-1.04) mg/dL Est GFR (CKD-EPI)AfAm >90 (>60 ml/min/1.73 sqM) Est GFR (CKD-EPI)NonAf >90 (>60 ml/min/1.73 sqM) Glucose 139 H (74-99) mg/dL Plasma Lactic Acid Emre 1.3 (0.7-2.0) mmol/L Calcium 9.1 (8.4-10.2) mg/dL Total Bilirubin 0.2 (0.2-1.3) mg/dL AST 28 (14-36) U/L ALT 32 (4-34) U/L Alkaline Phosphatase 99 (38-126) U/L Total Protein 7.3 (6.3-8.2) g/dL Albumin 4.3 (3.5-5.0) g/dL Amylase 54 (30-110) U/L Lipase 114 (23-300) U/L Urine Color Urine Appearance (Clear) Urine pH (5.0-8.0) Ur Specific [place] (1.001-1.035) Urine Protein (Negative) Urine Glucose (UA) (Negative) Urine Ketones (Negative) Urine Blood (Negative) Urine Nitrite (Negative) Urine Bilirubin (Negative) Urine Urobilinogen (<2.0) mg/dL Ur Leukocyte Esterase (Negative) Urine HCG, Qual (Not Detectd) Disposition Clinical Impression: Abdominal pain Disposition: HOME SELF-CARE Condition: Good Instructions (If sedation given, give patient instructions): Abdominal Pain (ED) Is patient prescribed a controlled substance at d/c from ED?: No Referrals: Stevie Friedman III, MD [Primary Care Provider] - 1-2 days
[2020-02-23 00:01] LABS: Appearance,Urine Clear (Clear); Bilirubin,Urine Negative (Negative); Blood,Urine Negative (Negative); Color,Urine Yellow; Glucose,Urine (UA) Negative (Negative); Ketones,Urine Negative (Negative); Leukocyte Esterase,Urine Negative (Negative); Nitrite,Urine Negative (Negative); Protein,Urine Negative (Negative); Specific Gravity,Urine 1.022 (1.001-1.035); Urobilinogen,Urine <2.0 mg/dL (<2.0)
[2020-02-23 00:01] LABS: Basophils % (A) 0 %; Eosinophils # (A) 0.2 k/uL (0-0.7); Eosinophils % (A) 2 %; HGB 13.6 gm/dL (11.4-16.0); Lymphocytes # (A) 3.1 k/uL (1.0-4.8); Lymphocytes % (A) 29 %; MCH 30.8 pg (25.0-35.0); MCV 90.5 fL (80.0-100.0); Mean Platelet Volume 7.7; Monocytes # (A) 0.5 k/uL (0-1.0); Monocytes % (A) 4 %; Neutrophils # (A) 6.9 k/uL (1.3-7.7); Neutrophils % (A) 63 %; Platelet Count 372 k/uL (150-450); RBC 4.42 m/uL (3.80-5.40); RDW 13.1 % (11.5-15.5)
[2020-02-23 00:15] LABS: ALT 32 U/L (4-34); AST 28 U/L (14-36); African American GFR (CKD) >90 (>60 ml/min/1.73 sqM); Albumin 4.3 g/dL (3.5-5.0); Alkaline Phosphatase 99 U/L (38-126); Amylase 54 U/L (30-110); Anion Gap 9 mmol/L; Blood Urea Nitrogen 17 mg/dL (7-17); Calcium 9.1 mg/dL (8.4-10.2); Carbon Dioxide 25 mmol/L (22-30); Chloride 102 mmol/L (98-107); Glucose 139 mg/dL (74-99); Non-African American GFR(CKD) >90 (>60 ml/min/1.73 sqM); Potassium 3.9 mmol/L (3.5-5.1); Sodium 136 mmol/L (137-145); Total Bilirubin 0.2 mg/dL (0.2-1.3); Total Protein 7.3 g/dL (6.3-8.2)
--- NOTE | 2020-02-23 00:15 | CT ---
EXAMINATION TYPE: CT abdomen pelvis w con DATE OF EXAM: 02/23/2020 COMPARISON: 05/09/2019 HISTORY: RLQ Abd Pain CT DLP: 1847.30 mGycm Automated exposure control for dose reduction was used. CONTRAST: Performed with IV Contrast, patient injected with 100 mL of Isovue 300. Lung bases are clear. There is no pleural effusion. There is gastric bariatric surgery. Liver shows n o focal defect. The bile ducts are not dilated. Gallbladder is absent. Spleen appears normal. There i s no evidence of pancreatic mass. There is no adrenal mass. Kidneys show satisfactory contrast opacification. There is [address] anterior right kidney. Delayed images show normal renal excretion. There is no hydronephrosis. Ure ters are not dilated. There is 2 mm calculus interpolar left kidney. Bladder distends smoothly. Uterus is anteverted. There is no inguinal hernia. There is 3.5 cm cyst on the right ovary. There is no free fluid in the pelvis. Appendix is posterior and appears normal. The re is no mesenteric edema. There is no ascites or free air. There is no bowel obstruction. Lumbar vertebra have normal spacing. There is a minimal L4-5 spondylolisthesis. I see no spondylolysi s. There is no lumbar compression fracture. The bony pelvis appears intact. IMPRESSION: Nonobstructing left renal calculus unchanged. Normal appendix. Right ovarian cyst unchanged compared to old exam.
[2020-02-23] MEDS ORDERED: ONDANSETRON 4 MG ODT STARTER PACK 2 TAB BTL PO STA (00:48)
[2020-02-23] MEDS ORDERED: ACET/COD 300 MG/30 MG STARTER PACK 6 TAB BTL PO STA (00:48)
[2020-02-23 01:01] VITALS: BP 122/77; PULSE 78; RESP 16; TEMP 98.5
== END 2020-02-23 01:02 | disposition home or self-care (01) ==
LOC: EC 23:04
DX: R10.84 Generalized abdominal pain (principal); R11.0 Nausea; F32.9 Major depressive disorder, single episode, unspecified; F43.10 Post-traumatic stress disorder, unspecified; Z98.84 Bariatric surgery status; Z90.49 Acquired absence of other specified parts of digestive tract; Z98.51 Tubal ligation status; Z98.890 Other specified postprocedural states; Z90.79 Acquired absence of other genital organ(s); Z87.442 Personal history of urinary calculi; Z79.899 Other long term (current) drug therapy
CPT/HCPCS: 36415; 80053; 82150; 83605; 83690; 85025; 81003; 81025; 74177; 99285; 96374; 96375 ×2; 96361; J2270; J2405; S0119; C9113; Q9967

== ENCOUNTER 2020-04-20 16:31 | Emergency (ER) | payer BC ==
[2020-04-20 16:37] VITALS: TEMP 98.4
[2020-04-20] MEDS ORDERED: ASPIRIN 81 MG PO STA (17:09)
[2020-04-20 17:37] LABS: Basophils % (A) 0 %; Eosinophils # (A) 0.2 k/uL (0-0.7); Eosinophils % (A) 2 %; HCT 41.2 % (34.0-46.0); HGB 13.4 gm/dL (11.4-16.0); Lymphocytes # (A) 2.5 k/uL (1.0-4.8); Lymphocytes % (A) 32 %; MCH 29.2 pg (25.0-35.0); MCHC 32.4 g/dL (31.0-37.0); MCV 90.1 fL (80.0-100.0); Mean Platelet Volume 7.9; Monocytes # (A) 0.3 k/uL (0-1.0); Monocytes % (A) 4 %; Neutrophils # (A) 4.6 k/uL (1.3-7.7); Neutrophils % (A) 59 %; Platelet Count 354 k/uL (150-450); RBC 4.58 m/uL (3.80-5.40); RDW 13.4 % (11.5-15.5); WBC 7.7 k/uL (3.8-10.6)
[2020-04-20 17:45] LABS: INR 0.9 (<1.2); Partial Thromboplastin Time 23.8 sec (22.0-30.0); Prothrombin Time 9.7 sec (9.0-12.0)
[2020-04-20 17:53] LABS: ALT 18 U/L (4-34); AST 28 U/L (14-36); African American GFR (CKD) >90 (>60 ml/min/1.73 sqM); Albumin 4.5 g/dL (3.5-5.0); Alkaline Phosphatase 81 U/L (38-126); Anion Gap 10 mmol/L; Blood Urea Nitrogen 16 mg/dL (7-17); Calcium 9.2 mg/dL (8.4-10.2); Carbon Dioxide 22 mmol/L (22-30); Chloride 103 mmol/L (98-107); Glucose 89 mg/dL (74-99); Magnesium 2.1 mg/dL (1.6-2.3); Non-African American GFR(CKD) >90 (>60 ml/min/1.73 sqM); Potassium 4.3 mmol/L (3.5-5.1); Sodium 135 mmol/L (137-145); Total Bilirubin 0.2 mg/dL (0.2-1.3); Total Protein 7.6 g/dL (6.3-8.2)
--- NOTE | 2020-04-20 18:09 | ED ---
Chest Pain HPI - General Source: patient Mode of arrival: ambulatory Limitations: no limitations <Freddie Fatima - Last Filed: 04/20/20 20:02> <Yessenia Corbin - Last Filed: 04/21/20 17:54> - General Chief Complaint: Chest Pain Stated Complaint: chest pain Time Seen by Provider: 04/20/20 17:09 - History of Present Illness Initial Comments: Patient is a 40-year-old female presenting to emergency Department with a chief complaint of chest pain. Patient reports the pain started on Friday, about 3 days ago. States the pain was more like a pressure in the midsternal it was radiating straight through her back. Patient states it has since increased in severity and is constant and sharp, again going straight through to her back. She denies one-sided extremity weakness. Patient states today she is also developed diaphoretic episodes along with lightheadedness but no dizziness. Denies any shortness of breath. States she was also at her primary care physician's office who started on Flexeril with no improvement in symptoms. Chest x-rays obtained show no significant findings. She denies unilateral leg swelling. Patient states she is not a smoker, no history of hypertension, hyperlipidemia or early cardiac related . (Freddie Fatima) - Related Data Home Medications Medication Instructions Recorded Confirmed Multivitamins, Thera [Multivitamin 1 tab PO DAILY 06/08/14 05/19/19 (formulary)] lamoTRIgine 200 mg PO BID 02/16/16 05/19/19 Desvenlafaxine Succinate [Pristiq] 50 mg PO DAILY 05/07/19 05/19/19 Loratadine [Claritin] 10 mg PO HS 05/09/19 05/19/19 Cholecalciferol (Vitamin D3) 10,000 unit PO DAILY 05/19/19 05/19/19 [Vitamin D3] Previous Rx's Medication Instructions Recorded Omeprazole 40 mg PO DAILY #90 capsule. 07/12/16 metroNIDAZOLE [Flagyl] 500 mg PO BID #14 tab 05/09/19 Ondansetron Odt [Zofran Odt] 4 mg PO Q8HR PRN #10 tab 07/16/19 Allergies Allergy/AdvReac Type Severity Reaction Status Date / Time No Known Allergies Allergy Verified 07/16/19 17:54 Review of Systems ROS Other: All systems not noted in ROS Statement are negative. <Freddie Fatima - Last Filed: 04/20/20 20:02> ROS Other: All systems not noted in ROS Statement are negative. <Yessenia Corbin - Last Filed: 04/21/20 17:54> ROS Statement: Those systems with pertinent positive or pertinent negative responses have been documented in the HPI. EKG Findings - EKG Comments: EKG Findings:: Sinus rhythm with no ST or T-wave changes. Ventricular rate 81, FL 170, QRS 80, QTC 415. <MelvinadrielFreddie - Last Filed: 04/20/20 20:02> Past Medical History Past Medical History: GERD/Reflux Additional Past Medical History / Comment(s): past history of hypertension, as of 03/13/16 has no complaints of GERD> History of Any Multi-Drug Resistant Organisms: None Reported Past Surgical History: Bariatric Surgery, Cholecystectomy, Tubal Ligation Additional Past Surgical History / Comment(s): LAPAROTOMY, BILATERAL FALLOPIAN TUBES REMOVED ,Sleeve gastrectomy 12/12/14, paniculectomy Jul 2016 Past Anesthesia/Blood Transfusion Reactions: No Reported Reaction Past Psychological History: Anxiety, Bipolar, Depression, PTSD Smoking Status: Never smoker Past Alcohol Use History: None Reported Past Drug Use History: None Reported - Past Family History Mother Family Medical History: No Reported History Additional Family Medical History / Comment(s): colitis <Freddie Fatima - Last Filed: 04/20/20 20:02> General Exam Limitations: no limitations General appearance: alert, in no apparent distress Head exam: Present: atraumatic, normocephalic, normal inspection Eye exam: Present: normal appearance, PERRL, EOMI Pupils: Present: normal accommodation ENT exam: Present: normal exam, normal oropharynx, mucous membranes moist, TM's normal bilaterally, normal external ear exam Neck exam: Present: normal inspection, tenderness, full ROM Respiratory exam: Present: normal lung sounds bilaterally. Absent: respiratory distress, wheezes, rales Cardiovascular Exam: Present: regular rate, normal rhythm, normal heart sounds GI/Abdominal exam: Present: soft. Absent: distended, tenderness, guarding Extremities exam: Present: normal inspection, full ROM, normal capillary refill, other (+2 ulnar and radial pulses bilaterally. +2 dorsalis pedis and posterior tibials bilateral.) Back exam: Present: normal inspection, full ROM. Absent: tenderness, CVA tenderness (R), CVA tenderness (L) Neurological exam: Present: alert, oriented X3 Psychiatric exam: Present: normal affect, normal mood Skin exam: Present: warm, dry, intact, normal color <Freddie Fatima - Last Filed: 04/20/20 20:02> Course Vital Signs 04/20/20 04/20/20 16:34 21:35 Temperature 98.4 F Pulse Rate 81 73 Respiratory 18 17 Rate Blood Pressure 128/89 130/85 O2 Sat by Pulse 97 99 Oximetry Chest Pain MDM - Differential Diagnosis ACS, PE <Freddie Fatima - Last Filed: 04/20/20 20:02> <Yessenia Corbin - Last Filed: 04/21/20 17:54> - [facility] Patient is a 40-year-old female presenting to the emergency department with chief complaint of chest pain. On exam, this does not appear to be reproducible chest pain to palpation. She is clear to auscultation. Concern for dissection considering her pain is radiating straight to the back. Her d-dimer is negative. EKG shows sinus rhythm and no ST or T-wave changes. Chest x-ray is unremarkable. Initial troponins are negative.CBC CMP are unremarkable. At this time, patient care will be signed off to . (Freddie Fatima) The patient was signed out to me. I did review her laboratory studies and her EKG. D-dimer is negative. Troponin is negative. Patient was sent over for CT which demonstrates no evidence of pulmonary embolism. Thoracic aorta is normal without aneurysm or dissection. Discuss results with the patient. She does have a follow-up appointment with her primary care doctor tomorrow. I did recommend that she get a Holter monitoring and echo. Return to the emergency room for any new or worsening symptoms. Patient agreed to this and she was discharged home in stable condition (Yessenia Corbin) Disposition <Freddie Fatima - Last Filed: 04/20/20 20:02> Is patient prescribed a controlled substance at d/c from ED?: No Time of Disposition: :18 <Yessenia Corbin - Last Filed: 04/21/20 17:54> Clinical Impression: Chest pain Disposition: HOME SELF-CARE Condition: Stable Instructions (If sedation given, give patient instructions): Chest Pain (ED) Additional Instructions: Follow-up with your primary care doctor tomorrow your scheduled appointment. I recommended Holter monitoring and echo. Return to the emergency room for any new or worsening symptoms Referrals: Stevie Friedman III, MD [Primary Care Provider] - 1-2 days
--- NOTE | 2020-04-20 18:31 | XR ---
EXAMINATION TYPE: XR chest 2V DATE OF EXAM: 04/20/2020 COMPARISON: 05/03/2018 HISTORY: Chest pain TECHNIQUE: FINDINGS: Heart and mediastinum are normal. Lungs are clear. Diaphragm is normal. Bony thorax appears intact. IMPRESSION: Normal chest.
--- NOTE | 2020-04-20 20:35 | CT ---
EXAMINATION TYPE: CT angio chest DATE OF EXAM: 04/20/2020 COMPARISON: None HISTORY: Chest pain CT DLP: 619.2 mGycm Automated exposure control for dose reduction was used. CONTRAST: Performed with IV Contrast, patient injected with 100 mL of Isovue 370. Images were obtained from the thoracic inlet to the diaphragm with IV contrast and 3-D post processed images. Mediastinum is normal. Thoracic aorta is intact. There is no aneurysm or dissection. There are no hil ar masses. I see no filling defects in the pulmonary arteries. There is no pleural effusion. There is no pericardial effusion. Heart size is normal. The lungs are clear of infiltrate. There is no evidence of a pulmonary mass. The upper abdominal soft tissues are intact. Thoracic spine is intact. There is no compression fracture. IMPRESSION: Normal exam. No evidence of pulmonary embolism.
[2020-04-20 21:37] VITALS: BP 130/85; PULSE 73; RESP 17
== END 2020-04-20 21:33 | disposition home or self-care (01) ==
LOC: EC 16:31
DX: R07.9 Chest pain, unspecified (principal); F43.10 Post-traumatic stress disorder, unspecified; F41.9 Anxiety disorder, unspecified; F31.9 Bipolar disorder, unspecified; I10 Essential (primary) hypertension; R42 Dizziness and giddiness; R61 Generalized hyperhidrosis; Z79.899 Other long term (current) drug therapy; Z98.84 Bariatric surgery status
CPT/HCPCS: 36415; 93005; 85379; 80053; 83735; 84484; 85025; 85610; 85730; 71046; 71275; 99285; Q9967; 83690

== ENCOUNTER 2020-05-01 06:24 | Day surgery (SDC) | payer BC ==
[2020-04-27 09:03] VITALS: BMI 38.2
--- NOTE | 2020-04-30 14:32 | HP ---
HISTORY AND PHYSICAL PREOPERATIVE HISTORY AND PHYSICAL: DATE OF SURGERY: 05/01/2020 This is a 40-year-old, non female, 3, para 2, 0,1, 2, that presented to the office with complaints of heavy menstrual cycles. The patient notes menstrual cycles to be every 28 to 30 days, lasting 7 days with 6 of them being quite heavy. Patient states he will pass "palm size" clots during her menstrual cycle. Patient notes dysmenorrhea with her cycle that is relieved with ibuprofen. The patient denies any dyschezia, dysuria, urinary incontinence. PAST MEDICAL HISTORY: Is significant for hypertension and GERD. PAST SURGICAL HISTORY: Is significant for a laparoscopic cholecystectomy, gastric sleeve, tubal ligation. MEDICATIONS: 1. Lamictal 150 mg. 2. Omeprazole daily. ALLERGIES: She has no known drug allergies. FAMILY HISTORY: Noncontributory. MEMBER OF [employer] HISTORY: She is a 3, para 2, 0, 1, 2 with 2 prior spontaneous vaginal deliveries and 1 ectopic for which she underwent salpingectomy. Menstrual cycles as stated above are regular every 28 to 30 days, lasting 7 days with heavy flow for approximately 6. Large clots are passed during her cycle. She does note dysmenorrhea for which she takes ibuprofen and this alleviates her symptoms. REVIEW OF SYSTEMS: She denies fatigue. She denies abdominal pain. She admits to heavy menstrual bleeding, dysmenorrhea. She denies urinary urgency or incontinence. Gastrointestinal, she denies nausea, vomiting, diarrhea, or constipation. She denies shortness of breath or dyspnea and she denies chest palpitations. PHYSICAL EXAM: Vital signs are noted to be stable. In general, this is a well-nourished, well- developed, non female in no obvious distress, breathing is noted to be nonlabored, heart has a regular rate and rhythm, abdomen is gravid, soft, nontender to palpation, external genitalia is normal for age, vaginal mucosa is noted to be pink and well rugated. Cervix is without lesion. Uterus is mobile and nontender. No adnexal masses are appreciated. There is no lower extremity edema. ASSESSMENT: 1. Heavy menstrual bleeding. 2. Menorrhagia. 3. Dysmenorrhea. PLAN: Will plan hysteroscopy, dilation and curettage with endometrial ablation. Medical alternatives to this procedure are reviewed with the patient in detail. She elects ablation as she is done with childbearing. Surgery is reviewed in detail. All questions were answered. Risks of the surgery including infection, bleeding . Proceed with hysteroscopy, dilation and curettage with endometrial ablation, NovaSure. MMODL / IJN: [id number] /
[~2020-05-01 06:24] MED LIST: DEXAMETHASONE SOD PHOSPHATE 10 MG/ML 1 ML VIAL IV ONE; HYDROmorphone 0.5 MG/0.5 ML SYRINGE IVP PRN; LACTATED RINGERS 1,000 ML IV SCH; ONDANSETRON 4 MG/2 ML VIAL IVP ONE; Pre Op ABX Message 1 EACH MISC MISCELLANE ONE; SCOPOLAMINE 1.5MG/72HR PATCH TRANSDERM ONE
[2020-05-01] MEDS ORDERED: LIDOCAINE 1% (10MG/ML) FOR IV START INTRADERMA ONE (07:02)
[2020-05-01] MEDS ORDERED: SUCCINYLCHOLINE CHLORIDE 100 MG/5 ML SYR IV ONE (07:30)
[2020-05-01] MEDS ORDERED: fentaNYL (PF) 50 MCG/ML 2 ML AMP ONE (07:30)
[2020-05-01] MEDS ORDERED: MIDAZOLAM 2 MG/2 ML VIAL ONE (07:30)
[2020-05-01] MEDS ORDERED: PROPOFOL 10 MG/ML 20 ML VIAL IV ONE (07:30)
[2020-05-01] MEDS ORDERED: LIDOCAINE 1% INJ 10MG/ML (20 ML MDV) ONE (07:30)
[2020-05-01] MEDS ORDERED: KETOROLAC 15 MG/ML 1 ML VIAL ONE (07:30)
--- NOTE | 2020-05-01 08:01 | P.OP ---
Date of Procedure: 05/01/20 Preoperative Diagnosis: Menorrhagia, dysmenorrhea Postoperative Diagnosis: Same Procedure(s) Performed: Hysteroscopy, dilation and curettage, endometrial ablation Anesthesia: RENETTAA Surgeon: Helen Perez Estimated Blood Loss (ml): 5 IV fluids (ml): 500 Urine output (ml): 50 Pathology: other (Endometrial curettings) Condition: stable Disposition: PACU Indications for Procedure: Heavy menstrual bleeding with cramping. Menstrual cycles noted to be every 28- 30 days lasting 7 days 6 of them being heavy period passage of large clots during cycle. Operative Findings: Proliferative endometrium Description of Procedure: Patient was taken to the operating suite where general anesthesia was obtained without difficulty by the anesthesia department. She was prepped and draped in normal sterile fashion in the dorsal lithotomy position. A regular catheter was used to drain the bladder of clear yellow urine. A weighted speculum was placed in the posterior vaginal vault, the anterior lip of the cervix is visualized and grasped with a single-tooth tenaculum. Endocervical canal was then dilated. A hysteroscope was then placed through the cervix and into the endometrial cavity a proliferative cavity was noted. Cavity was noted to be intact with bubbles, both ostia were visualized. Hysteroscope was removed. A sharp curettage was performed until all 4 quadrants were noted to be gritty in nature. The NovaSure device was then opened and set the appropriate measurements. With a length of 4, width of 3.7, power of 81 and a total cycle time of 91 seconds. After cavity assessment was passed, cycle was allowed to occur. After the cycle was complete the NovaSure device was removed without difficulty. The single-tooth tenaculum was taken off of the anterior lip of the cervix, hemostasis was appreciated. All instruments removed from the patient's vaginal vault. All counts were noted to be correct 2. Patient was taken the recovery room awake in stable conditi on.
[2020-05-01 08:13] VITALS: TEMP 96.8
[2020-05-01 08:17] VITALS: RESP 18
[2020-05-01 09:05] VITALS: BP 126/87; PULSE 98
== END 2020-05-01 09:27 | disposition home or self-care (01) ==
LOC: OR 06:24
PROVIDERS: ATTEND Obstetrics & Gynecology Obstetrics
DX: N92.0 Excessive and frequent menstruation with regular cycle (principal); N84.1 Polyp of cervix uteri; N94.6 Dysmenorrhea, unspecified; I10 Essential (primary) hypertension; K21.9 Gastro-esophageal reflux disease without esophagitis; F41.9 Anxiety disorder, unspecified; F31.9 Bipolar disorder, unspecified; F43.10 Post-traumatic stress disorder, unspecified; Z79.899 Other long term (current) drug therapy; Z90.49 Acquired absence of other specified parts of digestive tract; Z98.84 Bariatric surgery status; Z98.51 Tubal ligation status
CPT/HCPCS: 81025; 88305; 58563; J2250; J1100; J2405; J2001; J3010; J1885; J0330; J2704

== ENCOUNTER → 2020-05-23 | Outpatient (CLI) | payer BC | END | disposition home or self-care (01) | LOC: LABWHC1 09:44 | PROVIDERS: ATTEND Family Medicine | DX: R50.9 Fever, unspecified (principal); R07.0 Pain in throat | CPT/HCPCS: U0003; C9803 ==

== ENCOUNTER → 2020-06-07 | Outpatient (CLI) | payer BC ==
[2020-06-07 15:21] VITALS: BP 113/86; PULSE 85; TEMP 98.4
--- NOTE | 2020-06-07 15:41 | P.PN ---
Subjective Progress Note Date: 06/07/20 DATE OF SERVICE: 06/07/2020 CHIEF COMPLAINT: Status post sleeve gastrectomy HISTORY OF PRESENT ILLNESS: Kaiser Murray is a 39-year-old female status post sleeve gastrectomy 12/12/2014. She is over 5 years out. She comes in with weight gain from medications. She reports poor food choices. She reports chest pain and gastroesophageal reflux disease. Highest weight for her 5-foot 6-inch frame was 300 pounds. Her ideal body weight is 154 pounds. Today she comes in weighing 225 pounds from 213 pounds, 1 year ago. She has gained 13 pound in 1 year. Lifetime weight loss is 75 pounds. Percent excess weight loss is 51 % lifetime. Body mass index reduced from 48.5 down to 36.4. PHYSICAL EXAM: VITAL SIGNS: 5 feet 6 inches, 225 pounds, body mass index 36.4 Vital Signs Temp 98.4 F 06/07/20 15:06 Pulse 85 06/07/20 15:06 Resp BP 113/86 06/07/20 15:06 Pulse Ox ABDOMEN: Soft, Nondistended. GENERAL: Well-developed, pleasant female in no acute distress. MUSCULOSKELETAL: No clubbing, cyanosis. No edema CARDIOVASCULAR: Regular rate. Regular rhythm HEENT: No scleral icterus. Extraocular movements grossly intact. Moist buccal mucosa. NECK: Supple without lymphadenopathy. CHEST: Unlabored respirations with equal bilateral excursions. NEURO: No focal or lateralizing signs. SKIN: Well perfused. Good skin turgor. PSYCH: Alert oriented person place and time. STUDIES: CT of the abdomen and pelvis independently reviewed without small bowel obstruction ASSESSMENT: 1. Morbid obesity due to excess calories, 48.5 initial to 36.4 2. Status post sleeve gastrectomy. 3. Gastroesophageal reflux disease 4. Dietary surveillance and counseling 5. Iron deficiency anemia 6. Depressive disorder. 7. PLAN: 1. Recommend omeprazole for gastroesophageal reflux disease. 2. Recommend bariatric labs Objective - Vital Signs Vital signs: Vital Signs Temp 98.4 F 06/07/20 15:06 Pulse 85 06/07/20 15:06 Resp BP 113/86 06/07/20 15:06 Pulse Ox Intake & Output 06/06/20 06/07/20 06/07/20 18:59 06:59 18:59 Weight 102.421 kg
== END | disposition home or self-care (01) ==
LOC: BARWHC3 14:02
PROVIDERS: ATTEND Surgery Plastic and Reconstructive Surgery
DX: E66.01 Morbid (severe) obesity due to excess calories (principal); K21.9 Gastro-esophageal reflux disease without esophagitis; D50.9 Iron deficiency anemia, unspecified; F32.9 Major depressive disorder, single episode, unspecified; Z71.3 Dietary counseling and surveillance; Z98.84 Bariatric surgery status
CPT/HCPCS: 99211

== ENCOUNTER → 2020-08-18 | Outpatient (CLI) | payer BC | END | disposition home or self-care (01) | LOC: LABWHC1 14:34 | PROVIDERS: ATTEND Nurse Practitioner Family | DX: R53.83 Other fatigue (principal) | CPT/HCPCS: U0003; C9803; U0005 ==

== ENCOUNTER 2020-11-16 15:48 | Emergency (ER) | payer BC ==
[2020-11-16 15:54] VITALS: RESP 18; TEMP 97.4
[2020-11-16] MEDS ORDERED: SODIUM CHLORIDE 0.9% 1,000 ML IV ONE (16:47)
[2020-11-16] MEDS ORDERED: ONDANSETRON 4 MG/2 ML VIAL IVP STA (16:47)
[2020-11-16] MEDS ORDERED: HYDROmorphone 0.5 MG/0.5 ML SYRINGE IVP STA (16:47)
[2020-11-16 17:31] LABS: Appearance,Urine Clear (Clear); Bilirubin,Urine Negative (Negative); Blood,Urine Negative (Negative); Color,Urine Colorless; Glucose,Urine (UA) Negative (Negative); Ketones,Urine Negative (Negative); Leukocyte Esterase,Urine Negative (Negative); Nitrite,Urine Negative (Negative); PH, Urine 6.5 (5.0-8.0); Protein,Urine Negative (Negative); Urobilinogen,Urine <2.0 mg/dL (<2.0)
[2020-11-16 17:41] LABS: Basophils % (A) 0 %; Eosinophils # (A) 0.2 k/uL (0-0.7); Eosinophils % (A) 2 %; HCT 43.9 % (34.0-46.0); HGB 14.2 gm/dL (11.4-16.0); Lymphocytes # (A) 1.5 k/uL (1.0-4.8); Lymphocytes % (A) 24 %; MCH 29.2 pg (25.0-35.0); MCHC 32.2 g/dL (31.0-37.0); MCV 90.6 fL (80.0-100.0); Mean Platelet Volume 7.2; Monocytes # (A) 0.2 k/uL (0-1.0); Monocytes % (A) 4 %; Neutrophils # (A) 4.2 k/uL (1.3-7.7); Neutrophils % (A) 68 %; Platelet Count 372 k/uL (150-450); RBC 4.85 m/uL (3.80-5.40); RDW 13.5 % (11.5-15.5); WBC 6.2 k/uL (3.8-10.6)
[2020-11-16 17:55] LABS: ALT 58 U/L (4-34); AST 43 U/L (14-36); African American GFR (CKD) >90 (>60 ml/min/1.73 sqM); Albumin 4.4 g/dL (3.5-5.0); Alkaline Phosphatase 108 U/L (38-126); Anion Gap 6 mmol/L; Blood Urea Nitrogen 11 mg/dL (7-17); Calcium 9.5 mg/dL (8.4-10.2); Carbon Dioxide 31 mmol/L (22-30); Chloride 99 mmol/L (98-107); Glucose 111 mg/dL (74-99); Lipase 76 U/L (23-300); Non-African American GFR(CKD) >90 (>60 ml/min/1.73 sqM); Potassium 4.4 mmol/L (3.5-5.1); Sodium 136 mmol/L (137-145); Total Bilirubin 0.3 mg/dL (0.2-1.3); Total Protein 7.7 g/dL (6.3-8.2)
--- NOTE | 2020-11-16 17:57 | ED ---
General Adult HPI - General Chief complaint: Abdominal Pain Stated complaint: R side pain Time Seen by Provider: 11/16/20 16:21 Source: patient Mode of arrival: ambulatory Limitations: no limitations - History of Present Illness Initial comments: 40-year-old female patient presents to the emergency department today for evaluation of right-sided abdominal pain. Patient states the pain started mildly yesterday and is worsened today. States she is nauseated but has not vomited. Denies any constipation or diarrhea. She has had cholecystectomy and gastric sleeve performed in the past. Denies taking any medication for her symptoms. Denies any hematuria, dysuria, urinary frequency, urinary urgency. Denies fever or chills. Patient denies any recent rash, cough, shortness of breath, chest pain, back pain, numbness, tingling, dizziness, weakness, hematuria, dysuria, urinary urgency, urinary frequency, headache, visual changes, or any other complaints. She is positive for COVID but states symptoms with this are improving. - Related Data Home Medications Medication Instructions Recorded Confirmed Multivitamins, Thera [Multivitamin 1 tab PO DAILY 06/08/14 11/16/20 (formulary)] Desvenlafaxine Succinate [Pristiq] 50 mg PO HS 05/07/19 11/16/20 Ibuprofen [Motrin] 600 mg PO Q8HR PRN 04/27/20 11/16/20 Melatonin 5 mg PO HS PRN 04/27/20 11/16/20 Cholecalciferol (Vitamin D3) 250 mcg PO DAILY 11/16/20 11/16/20 [Vitamin D3 (5000 Iu)] lamoTRIgine [LaMICtal] 200 mg PO BID 11/16/20 11/16/20 Previous Rx's Medication Instructions Recorded Omeprazole 40 mg PO DAILY #90 capsule. 07/12/16 Ondansetron [Zofran ODT] 4 mg PO Q8HR PRN #10 tab 11/16/20 Allergies Allergy/AdvReac Type Severity Reaction Status Date / Time No Known Allergies Allergy Verified 11/16/20 18:14 Review of Systems ROS Statement: Those systems with pertinent positive or pertinent negative responses have been documented in the HPI. ROS Other: All systems not noted in ROS Statement are negative. Past Medical History Past Medical History: GERD/Reflux Additional Past Medical History / Comment(s): past history of hypertension, as of 03/13/16 has no complaints of GERD> History of Any Multi-Drug Resistant Organisms: None Reported Past Surgical History: Bariatric Surgery, Cholecystectomy, Tubal Ligation Additional Past Surgical History / Comment(s): LAPAROTOMY, BILATERAL FALLOPIAN TUBES REMOVED ,Sleeve gastrectomy 12/12/14, paniculectomy Jul 2016 Past Anesthesia/Blood Transfusion Reactions: No Reported Reaction Past Psychological History: Anxiety, Bipolar, Depression, PTSD Smoking Status: Never smoker Past Alcohol Use History: None Reported Past Drug Use History: None Reported - Past Family History Mother Family Medical History: No Reported History Additional Family Medical History / Comment(s): colitis General Exam Limitations: no limitations General appearance: alert, in no apparent distress, other (This is a well- developed, well-nourished adult female patient in no acute distress. Vital signs upon presentation are temperature 97.4F, pulse 110, respirations 18, blood pressure 134/87, pulse ox 98% on room air.) Eye exam: Present: normal appearance, PERRL, EOMI. Absent: scleral icterus, conjunctival injection, periorbital swelling ENT exam: Present: normal exam, normal oropharynx, mucous membranes moist Respiratory exam: Present: normal lung sounds bilaterally. Absent: respiratory distress, wheezes, rales, rhonchi, stridor Cardiovascular Exam: Present: regular rate, normal rhythm, normal heart sounds. Absent: systolic murmur, diastolic murmur, rubs, gallop, clicks GI/Abdominal exam: Present: soft, tenderness (Right mid abdominal tenderness, right lower quadrant tenderness), normal bowel sounds. Absent: distended, guarding, rebound, rigid Neurological exam: Present: alert, oriented X3, CN II-XII intact Psychiatric exam: Present: normal affect, normal mood Skin exam: Present: warm, dry, intact, normal color. Absent: rash Course Vital Signs 11/16/20 11/16/20 15:52 18:50 Temperature 97.4 F L Pulse Rate 110 H 76 Respiratory 18 18 Rate Blood Pressure 134/87 106/66 O2 Sat by Pulse 98 97 Oximetry Medical Decision Making - Medical Decision Making 40-year-old female patient presents to the emergency department today for evaluation of right-sided abdominal pain. Physical examination did reveal right mid abdominal tenderness and right lower quadrant tenderness. No CVA tenderness. Labs reviewed and are unremarkable. There is mild transaminitis likely due to her COVID-[address] abdomen and pelvis was obtained there were tiny bubbles in the liver most likely due to bile duct gas. This was present on [address] scans. I did discuss findings and results with the patient. She does feel somewhat better after receiving medication in the emergency department. She'll be discharged follow-up with her primary care physician for recheck in 1-2 days. Return parameters were discussed in detail. She verbalizes understanding and agrees with this plan. Case discussed with my attending Dr. Jaimes. - Lab Data Result diagrams: 11/16/20 17:31 11/16/20 17:31 Lab Results 11/16/20 11/16/20 11/16/20 Range/Units 17:20 17:31 17:31 WBC 6.2 (3.8-10.6) k/uL RBC 4.85 (3.80-5.40) m/uL Hgb 14.2 (11.4-16.0) gm/dL Hct 43.9 (34.0-46.0) % MCV 90.6 (80.0-100.0) fL MCH 29.2 (25.0-35.0) pg MCHC 32.2 (31.0-37.0) g/dL RDW 13.5 (11.5-15.5) % Plt Count 372 (150-450) k/uL MPV 7.2 Neutrophils % 68 % Lymphocytes % 24 % Monocytes % 4 % Eosinophils % 2 % Basophils % 0 % Neutrophils # 4.2 (1.3-7.7) k/uL Lymphocytes # 1.5 (1.0-4.8) k/uL Monocytes # 0.2 (0-1.0) k/uL Eosinophils # 0.2 (0-0.7) k/uL Basophils # 0.0 (0-0.2) k/uL Sodium 136 L (137-145) mmol/L Potassium 4.4 (3.5-5.1) mmol/L Chloride 99 (98-107) mmol/L Carbon Dioxide 31 H (22-30) mmol/L Anion Gap 6 mmol/L BUN 11 (7-17) mg/dL Creatinine 0.60 (0.52-1.04) mg/dL Est GFR (CKD-EPI)AfAm >90 (>60 ml/min/1.73 sqM) Est GFR (CKD-EPI)NonAf >90 (>60 ml/min/1.73 sqM) Glucose 111 H (74-99) mg/dL Plasma Lactic Acid Emre (0.7-2.0) mmol/L Calcium 9.5 (8.4-10.2) mg/dL Total Bilirubin 0.3 (0.2-1.3) mg/dL AST 43 H (14-36) U/L ALT 58 H (4-34) U/L Alkaline Phosphatase 108 (38-126) U/L Total Protein 7.7 (6.3-8.2) g/dL Albumin 4.4 (3.5-5.0) g/dL Lipase 76 (23-300) U/L Urine Color Colorless Urine Appearance Clear (Clear) Urine pH 6.5 (5.0-8.0) Ur Specific [place] 1.000 L (1.001-1.035) Urine Protein Negative (Negative) Urine Glucose (UA) Negative (Negative) Urine Ketones Negative (Negative) Urine Blood Negative (Negative) Urine Nitrite Negative (Negative) Urine Bilirubin Negative (Negative) Urine Urobilinogen <2.0 (<2.0) mg/dL Ur Leukocyte Esterase Negative (Negative) 11/16/20 Range/Units 17:31 WBC (3.8-10.6) k/uL RBC (3.80-5.40) m/uL Hgb (11.4-16.0) gm/dL Hct (34.0-46.0) % MCV (80.0-100.0) fL MCH (25.0-35.0) pg MCHC (31.0-37.0) g/dL RDW (11.5-15.5) % Plt Count (150-450) k/uL MPV Neutrophils % % Lymphocytes % % Monocytes % % Eosinophils % % Basophils % % Neutrophils # (1.3-7.7) k/uL Lymphocytes # (1.0-4.8) k/uL Monocytes # (0-1.0) k/uL Eosinophils # (0-0.7) k/uL Basophils # (0-0.2) k/uL Sodium (137-145) mmol/L Potassium (3.5-5.1) mmol/L Chloride (98-107) mmol/L Carbon Dioxide (22-30) mmol/L Anion Gap mmol/L BUN (7-17) mg/dL Creatinine (0.52-1.04) mg/dL Est GFR (CKD-EPI)AfAm (>60 ml/min/1.73 sqM) Est GFR (CKD-EPI)NonAf (>60 ml/min/1.73 sqM) Glucose (74-99) mg/dL Plasma Lactic Acid Emre 1.0 (0.7-2.0) mmol/L Calcium (8.4-10.2) mg/dL Total Bilirubin (0.2-1.3) mg/dL AST (14-36) U/L ALT (4-34) U/L Alkaline Phosphatase (38-126) U/L Total Protein (6.3-8.2) g/dL Albumin (3.5-5.0) g/dL Lipase (23-300) U/L Urine Color Urine Appearance (Clear) Urine pH (5.0-8.0) Ur Specific [place] (1.001-1.035) Urine Protein (Negative) Urine Glucose (UA) (Negative) Urine Ketones (Negative) Urine Blood (Negative) Urine Nitrite (Negative) Urine Bilirubin (Negative) Urine Urobilinogen (<2.0) mg/dL Ur Leukocyte Esterase (Negative) - Radiology Data Radiology results: report reviewed, image reviewed CT abdomen and pelvis is obtained. Report is reviewed in its entirety. Impression by Dr. Alana Farrell shows bilateral swallowing basilar infiltrate and correlate with clinical diagnosis of atypical pneumonia. Tiny gas bubble centrally within the liver, likely bile duct air bubbles. Disposition Clinical Impression: Abdominal pain Disposition: HOME SELF-CARE Condition: Good Instructions (If sedation given, give patient instructions): Abdominal Pain (ED) Additional Instructions: Follow-up with your primary care physician for recheck in 1-2 days. Return to the emergency department for any new, worsening, or concerning symptoms. Prescriptions: Ondansetron [Zofran ODT] 4 mg PO Q8HR PRN #10 tab PRN Reason: Nausea Is patient prescribed a controlled substance at d/c from ED?: No Referrals: Stevie Friedman III, MD [Primary Care Provider] - 1-2 days Time of Disposition: 18:43
--- NOTE | 2020-11-16 18:33 | CT ---
EXAMINATION TYPE: CT abdomen pelvis w con DATE OF EXAM: 11/16/2020 HISTORY: Abdominal pain, nausea. Hx tubal Diagnosed w/ Covid 11/08. TECHNIQUE: Helical acquisition of images was performed from the lung bases through the pelvis. Autom ated exposure control for dose reduction was used. CT DLP: 1806.5 mGycm COMPARISON: 02/23/2020 , and prior earlier CTs. CONTRAST: Performed without Oral Contrast and with IV Contrast, patient injected with 100 mL of Isovu e 300. FINDINGS: LUNG BASES: There are bilateral small ill-defined added opacities in the lung bases peripherally; cor relate clinically for atypical pneumonia. LIVER/GB: Gas bubbles are seen centrally within the liver, appearing to reside within the biliary fatimah e. There is evidence of this finding on the 05/25/2015 CT, as well as the 07/08/2015 CT. PANCREAS: No significant abnormality is seen. SPLEEN: No significant abnormality is seen. ADRENALS: No significant abnormality is seen. KIDNEYS: No significant abnormality is seen. FREE AIR: No free air is visualized. RETROPERITONEAL ADENOPATHY: None visualized REPRODUCTIVE ORGANS: No definite acute finding is noted. 2.5 cm right adnexal cystic structure is see n, smoothly marginated, likely functional ovarian cyst. URINARY BLADDER: No significant abnormality is seen. PELVIC ADENOPATHY: None visualized. OSSEOUS STRUCTURES: No significant abnormality is seen. BOWEL: No significant abnormality is seen. The appendix is retrocecal and has normal appearance. OTHER: No acute vascular findings. IMPRESSION: 1. BILATERAL SMALL LUNG BASE INFILTRATES CAN CORRELATE WITH A CLINICAL DIAGNOSIS OF ATYPICAL PNEUMONI A. 2. TINY GAS BUBBLES CENTRALLY WITHIN THE LIVER, LIKELY BILE DUCT AIR BUBBLES.
[2020-11-16] MEDS ORDERED: ONDANSETRON 4 MG ODT STARTER PACK 2 TAB BTL PO STA (18:44)
[2020-11-16] MEDS ORDERED: ACET/COD 300 MG/30 MG STARTER PACK 6 TAB BTL PO STA (18:44)
[2020-11-16 18:51] VITALS: BP 106/66; PULSE 76
== END 2020-11-16 18:54 | disposition home or self-care (01) ==
LOC: EC 15:48
DX: R10.9 Unspecified abdominal pain (principal); I10 Essential (primary) hypertension; K21.9 Gastro-esophageal reflux disease without esophagitis; Z79.1 Long term (current) use of non-steroidal anti-inflammatories (NSAID); Z79.899 Other long term (current) drug therapy; F41.9 Anxiety disorder, unspecified; F32.9 Major depressive disorder, single episode, unspecified
CPT/HCPCS: 36415; 80053; 83605; 83690; 85025; 81003; 74177; 99284; 96374; 96375; 96361; J2405; S0119; J1170; Q9967

== ENCOUNTER 2020-12-03 14:51 | Emergency (ER) | payer BC ==
[2020-12-03 14:56] VITALS: RESP 18
[2020-12-03] MEDS ORDERED: ONDANSETRON 4 MG/2 ML VIAL IVP STA (15:13)
--- NOTE | 2020-12-03 15:55 | ED ---
General Adult HPI - General Chief complaint: Abdominal Pain Stated complaint: ABD Pain,Urogenital Time Seen by Provider: 12/03/20 14:58 Source: patient Mode of arrival: ambulatory Limitations: no limitations - History of Present Illness Initial comments: Dictation was produced using [employer] dictation software. please excuse any grammatical, word or spelling errors. This patient was cared for during a federal and state declared state of emergency secondary to Covid 19 Chief Complaint: 40-year-old female presents with abdominal pain. History of Present Illness: Patient is a 40-year-old female presents with right- sided abdominal pain. Patient states she's been having on and off symptoms for the last 2 days. Patient reports that yesterday she had a mucous characteristic bowel movement. She states she's been having multiple episodes of that. She states she has some right-sided flank pain. She is history of gallbladder surge ry. States that she is worried about her appendix. She was of nausea no vomiting. She denies any fever, chills or night sweats. Patient denies . She states she had an ablation and unable to get . The ROS documented in this emergency department record has been reviewed and con firmed by me. Those systems with pertinent positive or negative responses have been documented in the HPI. All other systems are other negative and/or noncontributory. PHYSICAL EXAM: General Impression: Alert and oriented x3, not in acute distress HEENT: Normocephalic atraumatic, extra-ocular movements intact, pupils equal and reactive to light bilaterally, mucous membranes moist. Cardiovascular: Heart regular rate and rhythm Chest: Able to complete full sentences, no retractions, no tachypnea Abdomen: abdomen soft, mild tenderness to the right flank, right abdomen, non- distended, no organomegaly Musculoskeletal: Pulses present and equal in all extremities, no peripheral edema Motor: no focal deficits noted Neurological: CN II-XII grossly intact, no focal motor or sensory deficits noted Skin: Intact with no visualized rashes Psych: Normal affect and mood ED course: 40-year-old feel presents with nausea, mucous stool and right-sided flank pain signs upon arrival are within acceptable limits. Patient has no constitutional symptoms. She is afebrile and normal blood pressure. States that she is unable to achieve due to gynecologic procedure. Laboratory evaluation obtained. CBC, metabolic panel is unremarkable. Abdominal labs negative. Urinalysis is negative. Patient's liver enzymes mildly elevated perhaps her symptoms could be due to mild liver inflammation. Abdominal x-ray shows nonobstructive bowel gas pattern. Patient reevaluated bedside approximate 4:30 PM in stable medical condition. Patient clear for discharge. She is advised to follow-up with her primary care physician for outpatient management of symptoms. She is told to get a GI referral from her PCP. Temperature discussed. Patient will be discharged. - Related Data Home Medications Medication Instructions Recorded Confirmed Multivitamins, Thera [Multivitamin 1 tab PO DAILY 06/08/14 11/16/20 (formulary)] Desvenlafaxine Succinate [Pristiq] 50 mg PO HS 05/07/19 11/16/20 Ibuprofen [Motrin] 600 mg PO Q8HR PRN 04/27/20 11/16/20 Melatonin 5 mg PO HS PRN 04/27/20 11/16/20 Cholecalciferol (Vitamin D3) 250 mcg PO DAILY 11/16/20 11/16/20 [Vitamin D3 (5000 Iu)] lamoTRIgine [LaMICtal] 200 mg PO BID 11/16/20 11/16/20 Previous Rx's Medication Instructions Recorded Omeprazole 40 mg PO DAILY #90 capsule. 07/12/16 Ondansetron [Zofran ODT] 4 mg PO Q8HR PRN #10 tab 11/16/20 Allergies Allergy/AdvReac Type Severity Reaction Status Date / Time No Known Allergies Allergy Verified 12/03/20 14:56 Review of Systems ROS Statement: Those systems with pertinent positive or pertinent negative responses have been documented in the HPI. ROS Other: All systems not noted in ROS Statement are negative. Past Medical History Past Medical History: GERD/Reflux Additional Past Medical History / Comment(s): past history of hypertension, as of 03/13/16 has no complaints of GERD> History of Any Multi-Drug Resistant Organisms: None Reported Past Surgical History: Ablation, Bariatric Surgery, Cholecystectomy, Tubal Ligation Additional Past Surgical History / Comment(s): LAPAROTOMY, BILATERAL FALLOPIAN TUBES REMOVED ,Sleeve gastrectomy 12/12/14, paniculectomy Jul 2016 Past Anesthesia/Blood Transfusion Reactions: No Reported Reaction Past Psychological History: Anxiety, Bipolar, Depression, PTSD Smoking Status: Never smoker Past Alcohol Use History: None Reported Past Drug Use History: None Reported - Past Family History Mother Family Medical History: No Reported History Additional Family Medical History / Comment(s): colitis General Exam Limitations: no limitations Course Vital Signs 12/03/20 14:52 Temperature 97.8 F Pulse Rate 67 Respiratory 18 Rate Blood Pressure 120/73 O2 Sat by Pulse 98 Oximetry Medical Decision Making - Lab Data Result diagrams: 12/03/20 16:01 12/03/20 15:06 Lab Results 12/03/20 12/03/20 12/03/20 Range/Units 15:06 15:18 15:29 WBC (3.8-10.6) k/uL RBC (3.80-5.40) m/uL Hgb (11.4-16.0) gm/dL Hct (34.0-46.0) % MCV (80.0-100.0) fL MCH (25.0-35.0) pg MCHC (31.0-37.0) g/dL RDW (11.5-15.5) % Plt Count (150-450) k/uL MPV Neutrophils % % Lymphocytes % % Monocytes % % Eosinophils % % Basophils % % Neutrophils # (1.3-7.7) k/uL Lymphocytes # (1.0-4.8) k/uL Monocytes # (0-1.0) k/uL Eosinophils # (0-0.7) k/uL Basophils # (0-0.2) k/uL Sodium 137 (137-145) mmol/L Potassium 5.4 H (3.5-5.1) mmol/L Chloride 103 (98-107) mmol/L Carbon Dioxide 27 (22-30) mmol/L Anion Gap 7 mmol/L BUN 16 (7-17) mg/dL Creatinine 0.56 (0.52-1.04) mg/dL Est GFR (CKD-EPI)AfAm >90 (>60 ml/min/1.73 sqM) Est GFR (CKD-EPI)NonAf >90 (>60 ml/min/1.73 sqM) Glucose 84 (74-99) mg/dL Calcium 9.2 (8.4-10.2) mg/dL Total Bilirubin 0.9 (0.2-1.3) mg/dL AST 68 H (14-36) U/L ALT 44 H (4-34) U/L Alkaline Phosphatase 93 (38-126) U/L Total Protein 8.1 (6.3-8.2) g/dL Albumin 4.5 (3.5-5.0) g/dL Lipase 87 (23-300) U/L Urine Color Colorless Urine Appearance Clear (Clear) Urine pH 6.5 (5.0-8.0) Ur Specific [place] 1.001 (1.001-1.035) Urine Protein Negative (Negative) Urine Glucose (UA) Negative (Negative) Urine Ketones Negative (Negative) Urine Blood Negative (Negative) Urine Nitrite Negative (Negative) Urine Bilirubin Negative (Negative) Urine Urobilinogen <2.0 (<2.0) mg/dL Ur Leukocyte Esterase Negative (Negative) Urine HCG, Qual Not Detected (Not Detectd) 12/03/20 Range/Units 16:01 WBC 7.5 (3.8-10.6) k/uL RBC 4.59 (3.80-5.40) m/uL Hgb 13.3 (11.4-16.0) gm/dL Hct 41.6 (34.0-46.0) % MCV 90.7 (80.0-100.0) fL MCH 29.0 (25.0-35.0) pg MCHC 32.0 (31.0-37.0) g/dL RDW 13.6 (11.5-15.5) % Plt Count 417 (150-450) k/uL MPV 7.5 Neutrophils % 59 % Lymphocytes % 30 % Monocytes % 5 % Eosinophils % 3 % Basophils % 0 % Neutrophils # 4.4 (1.3-7.7) k/uL Lymphocytes # 2.3 (1.0-4.8) k/uL Monocytes # 0.3 (0-1.0) k/uL Eosinophils # 0.3 (0-0.7) k/uL Basophils # 0.0 (0-0.2) k/uL Sodium (137-145) mmol/L Potassium (3.5-5.1) mmol/L Chloride (98-107) mmol/L Carbon Dioxide (22-30) mmol/L Anion Gap mmol/L BUN (7-17) mg/dL Creatinine (0.52-1.04) mg/dL Est GFR (CKD-EPI)AfAm (>60 ml/min/1.73 sqM) Est GFR (CKD-EPI)NonAf (>60 ml/min/1.73 sqM) Glucose (74-99) mg/dL Calcium (8.4-10.2) mg/dL Total Bilirubin (0.2-1.3) mg/dL AST (14-36) U/L ALT (4-34) U/L Alkaline Phosphatase (38-126) U/L Total Protein (6.3-8.2) g/dL Albumin (3.5-5.0) g/dL Lipase (23-300) U/L Urine Color Urine Appearance (Clear) Urine pH (5.0-8.0) Ur Specific [place] (1.001-1.035) Urine Protein (Negative) Urine Glucose (UA) (Negative) Urine Ketones (Negative) Urine Blood (Negative) Urine Nitrite (Negative) Urine Bilirubin (Negative) Urine Urobilinogen (<2.0) mg/dL Ur Leukocyte Esterase (Negative) Urine HCG, Qual (Not Detectd) Disposition Clinical Impression: Flank pain Disposition: HOME SELF-CARE Condition: Good Instructions (If sedation given, give patient instructions): Abdominal Pain (ED) Is patient prescribed a controlled substance at d/c from ED?: No Referrals: Stevie Friedman III, MD [Primary Care Provider] - 1-2 days Decision Time: 16:37
[2020-12-03 16:11] LABS: Appearance,Urine Clear (Clear); Bilirubin,Urine Negative (Negative); Blood,Urine Negative (Negative); Color,Urine Colorless; Glucose,Urine (UA) Negative (Negative); Ketones,Urine Negative (Negative); Leukocyte Esterase,Urine Negative (Negative); Nitrite,Urine Negative (Negative); PH, Urine 6.5 (5.0-8.0); Protein,Urine Negative (Negative); Specific Gravity,Urine 1.001 (1.001-1.035); Urobilinogen,Urine <2.0 mg/dL (<2.0)
[2020-12-03 16:12] LABS: Basophils % (A) 0 %; Eosinophils # (A) 0.3 k/uL (0-0.7); Eosinophils % (A) 3 %; HCT 41.6 % (34.0-46.0); HGB 13.3 gm/dL (11.4-16.0); Lymphocytes # (A) 2.3 k/uL (1.0-4.8); Lymphocytes % (A) 30 %; MCV 90.7 fL (80.0-100.0); Mean Platelet Volume 7.5; Monocytes # (A) 0.3 k/uL (0-1.0); Monocytes % (A) 5 %; Neutrophils # (A) 4.4 k/uL (1.3-7.7); Neutrophils % (A) 59 %; Platelet Count 417 k/uL (150-450); RBC 4.59 m/uL (3.80-5.40); RDW 13.6 % (11.5-15.5); WBC 7.5 k/uL (3.8-10.6)
[2020-12-03 16:20] LABS: ALT 44 U/L (4-34); AST 68 U/L (14-36); African American GFR (CKD) >90 (>60 ml/min/1.73 sqM); Albumin 4.5 g/dL (3.5-5.0); Alkaline Phosphatase 93 U/L (38-126); Anion Gap 7 mmol/L; Blood Urea Nitrogen 16 mg/dL (7-17); Calcium 9.2 mg/dL (8.4-10.2); Carbon Dioxide 27 mmol/L (22-30); Chloride 103 mmol/L (98-107); Glucose 84 mg/dL (74-99); Lipase 87 U/L (23-300); Non-African American GFR(CKD) >90 (>60 ml/min/1.73 sqM); Sodium 137 mmol/L (137-145); Total Bilirubin 0.9 mg/dL (0.2-1.3); Total Protein 8.1 g/dL (6.3-8.2)
[2020-12-03 16:22] LABS: Potassium 5.4 mmol/L (3.5-5.1)
--- NOTE | 2020-12-03 16:24 | XR ---
EXAMINATION TYPE: XR abdomen 1V DATE OF EXAM: 12/03/2020 COMPARISON: 12/04/2012 HISTORY: Constipation TECHNIQUE: 2 views FINDINGS: There is no sign of intestinal obstruction or pneumoperitoneum. Fecal pattern is normal. Th ere is no sign of a mass. Lung bases are clear. IMPRESSION: Nonacute abdomen. No adverse change.
[2020-12-03] MEDS ORDERED: SODIUM CHLORIDE 0.9% 1,000 ML IV ONE (16:32)
[2020-12-03 18:18] VITALS: BP 117/68; PULSE 75; TEMP 98.4
== END 2020-12-03 18:10 | disposition home or self-care (01) ==
LOC: EC 14:51
DX: R10.9 Unspecified abdominal pain (principal); I10 Essential (primary) hypertension; K21.9 Gastro-esophageal reflux disease without esophagitis; F32.9 Major depressive disorder, single episode, unspecified; Z90.49 Acquired absence of other specified parts of digestive tract; Z98.51 Tubal ligation status
CPT/HCPCS: 36415; 80053; 83690; 85025; 81003; 81025; 74018; 99284; 96374; J2405

== ENCOUNTER → 2021-09-25 | Outpatient (CLI) | payer BC ==
[2021-09-26 13:27] LABS: Coronavirus SARS CoV-2 Not Detected (Not Detected)
== END | disposition home or self-care (01) ==
LOC: LABWHC1 11:00
PROVIDERS: ATTEND Family Medicine
DX: Z20.822 Contact with and (suspected) exposure to COVID-19 (principal); R05.1 Acute cough
CPT/HCPCS: U0003; C9803; U0005

== ENCOUNTER 2021-10-19 18:33 | Emergency (ER) | payer BC ==
--- NOTE | 2021-10-19 19:25 | XR ---
EXAMINATION TYPE: XR abdomen 1V DATE OF EXAM: 10/19/2021 COMPARISON: 12/03/2020 HISTORY: Abdominal pain TECHNIQUE: 2 views FINDINGS: Bowel gas pattern is normal. There is no sign of intestinal obstruction or pneumoperitoneum . Fecal pattern is normal. There is no evidence of a mass. There are no pathologic calcifications ove r the kidneys. Lung bases are clear. IMPRESSION: Nonacute abdomen. No adverse change.
[2021-10-19 23:10] VITALS: BP 134/97; PULSE 81; RESP 16; TEMP 98.1
[2021-10-19] MEDS ORDERED: ONDANSETRON 4 MG/2 ML VIAL IVP STA (23:58)
[2021-10-19] MEDS ORDERED: SODIUM CHLORIDE 0.9% 1,000 ML IV STA (23:58)
[2021-10-19] MEDS ORDERED: KETOROLAC 15 MG/ML 1 ML VIAL IVP STA (23:58)
[2021-10-20 00:16] LABS: Basophils % (A) 0 %; Eosinophils # (A) 0.3 k/uL (0-0.7); Eosinophils % (A) 3 %; HGB 13.5 gm/dL (11.4-16.0); Lymphocytes # (A) 2.5 k/uL (1.0-4.8); Lymphocytes % (A) 26 %; MCH 31.1 pg (25.0-35.0); MCV 94.3 fL (80.0-100.0); Monocytes # (A) 0.3 k/uL (0-1.0); Monocytes % (A) 3 %; Neutrophils # (A) 6.6 k/uL (1.3-7.7); Neutrophils % (A) 66 %; Platelet Count 383 k/uL (150-450); RBC 4.34 m/uL (3.80-5.40); RDW 13.6 % (11.5-15.5)
[2021-10-20 00:17] LABS: Appearance,Urine Clear (Clear); Bilirubin,Urine Negative (Negative); Blood,Urine Negative (Negative); Color,Urine Yellow; Glucose,Urine (UA) Negative (Negative); Ketones,Urine Negative (Negative); Leukocyte Esterase,Urine Moderate (Negative); Mucus,Urine Rare /hpf; Nitrite,Urine Negative (Negative); PH, Urine 6.5 (5.0-8.0); Protein,Urine Negative (Negative); RBC,Urine 1 /hpf (0-5); Specific Gravity,Urine 1.009 (1.001-1.035); Squamous Epithelial Cell,Urine 1 /hpf (0-4); Urobilinogen,Urine <2.0 mg/dL (<2.0); WBC,Urine 1 /hpf (0-5)
[2021-10-20 00:34] LABS: ALT 34 U/L (4-34); AST 48 U/L (14-36); African American GFR (CKD) >90 (>60 ml/min/1.73 sqM); Albumin 4.3 g/dL (3.5-5.0); Alkaline Phosphatase 78 U/L (38-126); Anion Gap 6 mmol/L; Blood Urea Nitrogen 9 mg/dL (7-17); Calcium 8.5 mg/dL (8.4-10.2); Carbon Dioxide 23 mmol/L (22-30); Chloride 105 mmol/L (98-107); Glucose 91 mg/dL (74-99); Lipase 55 U/L (23-300); Non-African American GFR(CKD) >90 (>60 ml/min/1.73 sqM); Sodium 134 mmol/L (137-145); Total Bilirubin 0.8 mg/dL (0.2-1.3); Total Protein 7.7 g/dL (6.3-8.2)
[2021-10-20] MEDS ORDERED: HYDROmorphone 1 MG/ML 1 ML SYRINGE IVP STA (01:01)
[2021-10-20 01:27] LABS: Potassium 4.6 mmol/L (3.5-5.1)
--- NOTE | 2021-10-20 01:27 | CT ---
EXAMINATION TYPE: CT abdomen pelvis w con DATE OF EXAM: 10/20/2021 COMPARISON: 11/16/2020 HISTORY: pain CT DLP: 1611 mGycm Automated exposure control for dose reduction was used. CONTRAST: Performed with IV Contrast, patient injected with 100 mL of Isovue 300. There is subsegmental minimal atelectasis at the lung bases. Heart size is normal. There is no perica rdial effusion. Liver and spleen pancreas appear intact. The bile ducts are not dilated. Gallbladder appears absent. There are clips apparently from gastric bariatric surgery. There is no adrenal mass. Kidneys show satisfactory contrast opacification. There is no hydronephrosi s. There is 2.5 cm cortical cyst anterior right kidney. There is 3 mm calculus lateral left kidney. T he ureters are not dilated. Delayed images show normal renal excretion. There is no retroperitoneal a denopathy. Appendix is posterior and appears normal. Bladder distends smoothly. Uterus is anteverted. There is no inguinal hernia. No evidence of free fluid in the pelvis. There is 4.5 cm cyst on the ri ght ovary. There is no mesenteric edema. There is no ascites or free air. There is no bowel obstruction. The lum bar vertebrae have fairly normal alignment. There is no compression fracture. Posterior elements are intact. The bony pelvis is intact. Hip joints are intact. Sacrum and coccyx are intact. IMPRESSION: Large right ovarian cyst. No solid pelvic mass. Nonobstructing left renal calculus. Ovarian cyst incr eased 1 cm in diameter compared to old exam. Normal appendix.
--- NOTE | 2021-10-20 02:04 | ED ---
General Adult HPI - General Chief complaint: Abdominal Pain Stated complaint: right side pain Time Seen by Provider: 10/19/21 23:03 Source: patient, RN notes reviewed (Respirations 142 is documented incorrectly. This is patient's systolic blood pressure. Actual respirations are 14.) Mode of arrival: ambulatory Limitations: no limitations - History of Present Illness Initial comments: 41-year-old female presents to the emergency Department with complaints of right lower quadrant abdominal pain that radiates to the right flank and back. Patient states the pain began bleeding this afternoon and has worsened throughout the evening. Patient states she did attempt to treat her symptoms at home with rest, heat, and Tylenol, however did not have any improvement. Reports she is experiencing mild nausea as well. Patient states she was reading online that the right side of the lower abdomen is the location of the appendix and became concerned about a possible appendicitis so she came to the emergency department. Reports history of uterine ablation. Patient denies fever, chills, chest pain, shortness of breath, difficulty breathing, vomiting, diarrhea, dysuria, or hematuria. - Related Data Home Medications Medication Instructions Recorded Confirmed Multivitamins, Thera [Multivitamin 1 tab PO DAILY 06/08/14 11/16/20 (formulary)] Desvenlafaxine Succinate [Pristiq] 50 mg PO HS 05/07/19 11/16/20 Ibuprofen [Motrin] 600 mg PO Q8HR PRN 04/27/20 11/16/20 Melatonin 5 mg PO HS PRN 04/27/20 11/16/20 Cholecalciferol (Vitamin D3) 250 mcg PO DAILY 11/16/20 11/16/20 [Vitamin D3 (5000 Iu)] lamoTRIgine [LaMICtal] 200 mg PO BID 11/16/20 11/16/20 Previous Rx's Medication Instructions Recorded Omeprazole 40 mg PO DAILY #90 capsule. 07/12/16 Ondansetron [Zofran ODT] 4 mg PO Q8HR PRN #10 tab 11/16/20 Ondansetron Odt [Zofran Odt] 4 mg PO Q8HR PRN #10 tab 10/20/21 Allergies Allergy/AdvReac Type Severity Reaction Status Date / Time No Known Allergies Allergy Verified 10/19/21 19:04 Review of Systems ROS Statement: Those systems with pertinent positive or pertinent negative responses have been documented in the HPI. ROS Other: All systems not noted in ROS Statement are negative. Past Medical History Past Medical History: GERD/Reflux Additional Past Medical History / Comment(s): past history of hypertension, as of 03/13/16 has no complaints of GERD> History of Any Multi-Drug Resistant Organisms: None Reported Past Surgical History: Ablation, Bariatric Surgery, Cholecystectomy, Tubal Ligation Additional Past Surgical History / Comment(s): LAPAROTOMY, BILATERAL FALLOPIAN TUBES REMOVED ,Sleeve gastrectomy 12/12/14, paniculectomy Jul 2016 Past Anesthesia/Blood Transfusion Reactions: No Reported Reaction Past Psychological History: ADD/ADHD, Anxiety, Bipolar, Depression, PTSD Smoking Status: Never smoker Past Alcohol Use History: None Reported Past Drug Use History: None Reported - Past Family History Mother Family Medical History: No Reported History Additional Family Medical History / Comment(s): colitis General Exam Limitations: no limitations (Well-developed, well-nourished female in no acute distress. Initial temperature 97.6, pulse 90, respirations 14, blood pressure 142/94, pulse ox 99% on room air.) General appearance: alert, in no apparent distress ENT exam: Present: normal exam, normal oropharynx, mucous membranes moist Respiratory exam: Present: normal lung sounds bilaterally. Absent: respiratory distress, wheezes, rales, rhonchi, stridor Cardiovascular Exam: Present: regular rate, normal rhythm, normal heart sounds. Absent: systolic murmur, diastolic murmur, rubs, gallop, clicks GI/Abdominal exam: Present: soft, tenderness (mild tenderness upon palpation of the periumbilical and right lower quadrant ; no rebound tenderness), normal bowel sounds. Absent: distended, guarding, rebound, rigid Expanded GI/Abdominal exam: Absent: heel tap sign, tenderness at McBurney's Point Back exam: Present: normal inspection. Absent: CVA tenderness (R), CVA tenderness (L), paraspinal tenderness, vertebral tenderness Neurological exam: Present: alert, oriented X3, CN II-XII intact Psychiatric exam: Present: normal affect, normal mood Course Vital Signs 10/19/21 10/19/21 19:00 23:09 Temperature 97.6 F 98.1 F Pulse Rate 90 81 Respiratory 142 H 16 Rate Blood Pressure 142/94 134/97 O2 Sat by Pulse 99 100 Oximetry - Reevaluation(s) Reevaluation #1: 10/20/21 01:00 Upon reevaluation, patient reports minimal improvement in discomfort with Toradol, though states her nausea is nearly resolved. Additional pain medication will be ordered. Patient is pending CT. 10/20/21 01:39 Patient's pain resolved with Dilaudid. Discussed CT findings with patient. Encouraged to follow up with gynecology. Discussed pain management options; patient has Motrin at home and will continue to use heat application. Medical Decision Making - Medical Decision Making 41-year-old female with a past medical history of GERD, bariatric surgery, cholecystectomy, tubal ligation, and a uterine ablation presents to the emergency department for evaluation of right four-quadrant abdominal pain that radiates to the right flank and back. Upon exam, patient is well-appearing and in no acute distress. Her abdomen is soft with minimal tenderness upon palpation of the right lower quadrant. She is able to ambulate without difficulty. Does complain of persistent nausea. Was given Zofran and Toradol, however did require additional pain medication for resolution of symptoms. Laboratory studies were reviewed and are unremarkable. CT of the abdomen and pelvis does reveal a large right ovarian cyst that has increased in size when compared to previous exam. Appendix is normal. Results were discussed with the patient. She is encouraged to follow up with gynecology for further evaluation and treatment. States she does have Motrin at home and was encouraged to use this to treat discomfort. Also suggested heat application including warm shower, bath, or heating pad. Return parameters were discussed in detail. Patient verbalizes understanding and agrees with this plan. This patient's care was discussed with my attending Dr. Kent. - Lab Data Result diagrams: 10/20/21 00:01 10/20/21 00:01 Lab Results 10/20/21 10/20/21 10/20/21 Range/Units 00:01 00:01 00:01 WBC 10.0 (3.8-10.6) k/uL RBC 4.34 (3.80-5.40) m/uL Hgb 13.5 (11.4-16.0) gm/dL Hct 41.0 (34.0-46.0) % MCV 94.3 (80.0-100.0) fL MCH 31.1 (25.0-35.0) pg MCHC 33.0 (31.0-37.0) g/dL RDW 13.6 (11.5-15.5) % Plt Count 383 (150-450) k/uL MPV 8.0 Neutrophils % 66 % Lymphocytes % 26 % Monocytes % 3 % Eosinophils % 3 % Basophils % 0 % Neutrophils # 6.6 (1.3-7.7) k/uL Lymphocytes # 2.5 (1.0-4.8) k/uL Monocytes # 0.3 (0-1.0) k/uL Eosinophils # 0.3 (0-0.7) k/uL Basophils # 0.0 (0-0.2) k/uL Sodium 134 L (137-145) mmol/L Potassium 4.6 (3.5-5.1) mmol/L Chloride 105 (98-107) mmol/L Carbon Dioxide 23 (22-30) mmol/L Anion Gap 6 mmol/L BUN 9 (7-17) mg/dL Creatinine 0.56 (0.52-1.04) mg/dL Est GFR (CKD-EPI)AfAm >90 (>60 ml/min/1.73 sqM) Est GFR (CKD-EPI)NonAf >90 (>60 ml/min/1.73 sqM) Glucose 91 (74-99) mg/dL Plasma Lactic Acid Emre (0.7-2.0) mmol/L Calcium 8.5 (8.4-10.2) mg/dL Total Bilirubin 0.8 (0.2-1.3) mg/dL AST 48 H (14-36) U/L ALT 34 (4-34) U/L Alkaline Phosphatase 78 (38-126) U/L Total Protein 7.7 (6.3-8.2) g/dL Albumin 4.3 (3.5-5.0) g/dL Lipase 55 (23-300) U/L Urine Color Yellow Urine Appearance Clear (Clear) Urine pH 6.5 (5.0-8.0) Ur Specific [place] 1.009 (1.001-1.035) Urine Protein Negative (Negative) Urine Glucose (UA) Negative (Negative) Urine Ketones Negative (Negative) Urine Blood Negative (Negative) Urine Nitrite Negative (Negative) Urine Bilirubin Negative (Negative) Urine Urobilinogen <2.0 (<2.0) mg/dL Ur Leukocyte Esterase Moderate H (Negative) Urine RBC 1 (0-5) /hpf Urine WBC 1 (0-5) /hpf Ur Squamous Epith Cells 1 (0-4) /hpf Urine Mucus Rare H (None) /hpf 10/20/21 Range/Units 00:01 WBC (3.8-10.6) k/uL RBC (3.80-5.40) m/uL Hgb (11.4-16.0) gm/dL Hct (34.0-46.0) % MCV (80.0-100.0) fL MCH (25.0-35.0) pg MCHC (31.0-37.0) g/dL RDW (11.5-15.5) % Plt Count (150-450) k/uL MPV Neutrophils % % Lymphocytes % % Monocytes % % Eosinophils % % Basophils % % Neutrophils # (1.3-7.7) k/uL Lymphocytes # (1.0-4.8) k/uL Monocytes # (0-1.0) k/uL Eosinophils # (0-0.7) k/uL Basophils # (0-0.2) k/uL Sodium (137-145) mmol/L Potassium (3.5-5.1) mmol/L Chloride (98-107) mmol/L Carbon Dioxide (22-30) mmol/L Anion Gap mmol/L BUN (7-17) mg/dL Creatinine (0.52-1.04) mg/dL Est GFR (CKD-EPI)AfAm (>60 ml/min/1.73 sqM) Est GFR (CKD-EPI)NonAf (>60 ml/min/1.73 sqM) Glucose (74-99) mg/dL Plasma Lactic Acid Emre 0.9 (0.7-2.0) mmol/L Calcium (8.4-10.2) mg/dL Total Bilirubin (0.2-1.3) mg/dL AST (14-36) U/L ALT (4-34) U/L Alkaline Phosphatase (38-126) U/L Total Protein (6.3-8.2) g/dL Albumin (3.5-5.0) g/dL Lipase (23-300) U/L Urine Color Urine Appearance (Clear) Urine pH (5.0-8.0) Ur Specific [place] (1.001-1.035) Urine Protein (Negative) Urine Glucose (UA) (Negative) Urine Ketones (Negative) Urine Blood (Negative) Urine Nitrite (Negative) Urine Bilirubin (Negative) Urine Urobilinogen (<2.0) mg/dL Ur Leukocyte Esterase (Negative) Urine RBC (0-5) /hpf Urine WBC (0-5) /hpf Ur Squamous Epith Cells (0-4) /hpf Urine Mucus (None) /hpf - Radiology Data Radiology results: report reviewed, image reviewed X-ray of the abdomen was obtained. Report was reviewed in its entirety. Impression per Dr. Gomez is nonacute abdomen. No adverse change. CT of the abdomen and pelvis with contrast was obtained. Report was reviewed in its entirety. Impression per Dr. Gomez's large right ovarian cyst. No solid pelvic mass. Nonobstructing left renal calculus. Ovarian cyst increased 1 cm in diameter compared to old exam. Normal appendix. Disposition Clinical Impression: Ovarian cyst, right, Nausea Disposition: HOME SELF-CARE Condition: Stable Instructions (If sedation given, give patient instructions): Ovarian Cyst (ED) Additional Instructions: Take Motrin as needed for discomfort. May take Zofran if needed for nausea. Apply heating pad or take a bath or shower to help alleviate discomfort. Follow-up with gynecology for further evaluation and treatment. Current to the emergency department with any new, worsening, or concerning symptoms. Prescriptions: Ondansetron Odt [Zofran Odt] 4 mg PO Q8HR PRN #10 tab PRN Reason: Nausea Is patient prescribed a controlled substance at d/c from ED?: No Referrals: Stevie Friedman III, MD [Primary Care Provider] - 1-2 days Time of Disposition: 02:07
== END 2021-10-20 02:40 | disposition home or self-care (01) ==
LOC: EC 18:33
DX: N83.201 Unspecified ovarian cyst, right side (principal); R11.0 Nausea; I10 Essential (primary) hypertension
CPT/HCPCS: 36415; 80053; 83605; 83690; 85025; 81001; 74018; 74177; 99284; 96374; 96375; 96361; J2405; J1170; J1885; Q9967

== ENCOUNTER 2022-10-31 00:36 | Emergency (ER) | payer BC ==
[2022-10-31 01:17] LABS: Appearance,Urine Turbid (Clear); Bacteria,Urine Occasional /hpf; Bilirubin,Urine Negative (Negative); Blood,Urine Large (Negative); Color,Urine Yellow; Glucose,Urine (UA) Negative (Negative); Ketones,Urine Negative (Negative); Leukocyte Esterase,Urine Trace (Negative); Mucus,Urine Rare /hpf; Nitrite,Urine Negative (Negative); Protein,Urine 1+ (Negative); RBC,Urine >182 /hpf (0-5); Specific Gravity,Urine 1.023 (1.001-1.035); Squamous Epithelial Cell,Urine 4 /hpf (0-4); WBC,Urine 6 /hpf (0-5)
[2022-10-31] MEDS ORDERED: SODIUM CHLORIDE 0.9% 1,000 ML IV STA (01:24)
[2022-10-31] MEDS ORDERED: ONDANSETRON 4 MG/2 ML VIAL IVP STA (01:42)
[2022-10-31] MEDS ORDERED: HYDROmorphone 0.5 MG/0.5 ML SYRINGE IVP STA ×2 (01:42→03:19)
[2022-10-31] MEDS ORDERED: KETOROLAC 15 MG/ML 1 ML VIAL IVP STA (01:52)
[2022-10-31 01:57] LABS: Basophils % (A) 0 %; Eosinophils # (A) 0.2 k/uL (0-0.7); Eosinophils % (A) 2 %; HCT 38.1 % (34.0-46.0); HGB 13.4 gm/dL (11.4-16.0); Lymphocytes # (A) 2.7 k/uL (1.0-4.8); Lymphocytes % (A) 39 %; MCHC 35.2 g/dL (31.0-37.0); Monocytes # (A) 0.3 k/uL (0-1.0); Monocytes % (A) 4 %; Neutrophils # (A) 3.6 k/uL (1.3-7.7); Neutrophils % (A) 51 %; Platelet Count 318 k/uL (150-450); RBC 4.18 m/uL (3.80-5.40); RDW 13.2 % (11.5-15.5)
--- NOTE | 2022-10-31 02:23 | CT ---
EXAMINATION TYPE: CT abdomen pelvis w con DATE OF EXAM: 10/31/2022 COMPARISON: 10/20/2021 HISTORY: LLQ PAIN CT DLP: 1501.1 mGycm Automated exposure control for dose reduction was used. CONTRAST: Performed with IV Contrast, patient injected with 100 mL of Isovue 300. Images obtained from the diaphragm to the floor the pelvis with the IV contrast. Lung bases are clear of consolidation. There is no pleural effusion. Heart size is normal. No pericar dial effusion. There is gastric bariatric surgery. There is small amount of air refluxed into the melani iary tree. Spleen is intact. No evidence of pancreatic mass. The bile ducts are not dilated. There is no adrenal mass. Kidneys show normal size and contour. There is 2 cm cortical cyst anterior right kidney. There is mild left-sided hydronephrosis and hydroureter. There is obstructing 3 mm calc ulus in the distal left ureter. There is delayed left sided pyelogram. Right kidney shows normal excr etion on the delayed images. Appendix is posterior and appears normal. There is no retroperitoneal adenopathy. Bladder distends sm oothly. Uterus is anteverted. There is 4.5 cm cyst on the right ovary. There are a few sigmoid divert icula. No diverticulitis. There is no mesenteric edema. No ascites or free air. No sign of a bowel obstruction. The lumbar vertebra show fairly normal alignment. There is mild degenerative first-degree L4-5 spondy lolisthesis. There is facet arthropathy and vacuum joint at L4-5. No lumbar compression fracture. The bony pelvis is intact. The hip joints are intact. Sacroiliac joints are intact. IMPRESSION: There is obstructing calculus in the distal left ureter with left-sided hydronephrosis and hydrourete r. Obstruction is new compared to old exam. Normal appendix. Minimal colonic diverticulosis. Large right ovarian cyst is similar to old exam. The re is biliary air refluxed which is a change compared to old exam. No dilated ducts.
[2022-10-31] MEDS ORDERED: TAMSULOSIN 0.4 MG CAP.ER.24H PO STA (02:52)
[2022-10-31 03:07] LABS: Albumin 4.3 g/dL (3.5-5.0); Calcium 9.3 mg/dL (8.4-10.2); Total Bilirubin 0.4 mg/dL (0.2-1.3); Total Protein 7.2 g/dL (6.3-8.2)
[2022-10-31 03:12] LABS: Potassium 4.6 mmol/L (3.5-5.1)
--- NOTE | 2022-10-31 03:15 | ED ---
Abdominal Pain HPI - General Chief Complaint: Abdominal Pain Stated Complaint: Abd Pain Time Seen by Provider: 10/31/22 01:23 Source: patient Mode of arrival: wheelchair - History of Present Illness Initial Comments: Patient is a 42-year-old female who presents to the emergency department for abdominal pain. It started 30 minutes prior to arrival. Patient reports pain in her left lower abdomen with radiation to her periumbilical region. She reports nausea without vomiting. No fever, chills, burning with urination, blood in the urine, diarrhea, bloody stools, constipation. She denies history of diverticulitis she has never had a colonoscopy. Patient has history of cho lecystectomy. - Related Data Home Medications Medication Instructions Recorded Confirmed Multivitamins, Thera [Multivitamin 1 tab PO DAILY 06/08/14 11/16/20 (formulary)] Desvenlafaxine Succinate [Pristiq] 50 mg PO HS 05/07/19 11/16/20 Ibuprofen [Motrin] 600 mg PO Q8HR PRN 04/27/20 11/16/20 Melatonin 5 mg PO HS PRN 04/27/20 11/16/20 Cholecalciferol (Vitamin D3) 250 mcg PO DAILY 11/16/20 11/16/20 [Vitamin D3 (5000 Iu)] lamoTRIgine [LaMICtal] 200 mg PO BID 11/16/20 11/16/20 Previous Rx's Medication Instructions Recorded Omeprazole 40 mg PO DAILY #90 capsule. 07/12/16 Ondansetron [Zofran ODT] 4 mg PO Q8HR PRN #10 tab 11/16/20 Ondansetron Odt [Zofran Odt] 4 mg PO Q8HR PRN #10 tab 10/20/21 Ibuprofen [Motrin] 800 mg PO Q8HR PRN #30 tab 10/31/22 Ondansetron Odt [Zofran Odt] 4 mg PO Q8HR PRN #10 tab 10/31/22 Tamsulosin [Flomax] 0.4 mg PO DAILY #7 cap 10/31/22 Allergies Allergy/AdvReac Type Severity Reaction Status Date / Time No Known Allergies Allergy Verified 10/31/22 00:47 Review of Systems ROS Statement: Those systems with pertinent positive or pertinent negative responses have been documented in the HPI. ROS Other: All systems not noted in ROS Statement are negative. Past Medical History Past Medical History: GERD/Reflux Additional Past Medical History / Comment(s): past history of hypertension, as of 03/13/16 has no complaints of GERD> History of Any Multi-Drug Resistant Organisms: None Reported Past Surgical History: Ablation, Bariatric Surgery, Cholecystectomy, Tubal Ligation Additional Past Surgical History / Comment(s): LAPAROTOMY, BILATERAL FALLOPIAN TUBES REMOVED ,Sleeve gastrectomy 12/12/14, paniculectomy Jul 2016 Past Anesthesia/Blood Transfusion Reactions: No Reported Reaction Past Psychological History: ADD/ADHD, Anxiety, Bipolar, Depression, PTSD Smoking Status: Never smoker Past Alcohol Use History: None Reported Past Drug Use History: None Reported - Past Family History Mother Family Medical History: No Reported History Additional Family Medical History / Comment(s): colitis General Exam General appearance: alert, in no apparent distress Head exam: Present: atraumatic, normocephalic, normal inspection Respiratory exam: Present: normal lung sounds bilaterally. Absent: respiratory distress, wheezes, rales, rhonchi, stridor Cardiovascular Exam: Present: regular rate, normal rhythm, normal heart sounds. Absent: systolic murmur, diastolic murmur, rubs, gallop, clicks GI/Abdominal exam: Present: soft, tenderness (mild LLQ), normal bowel sounds. Absent: distended, guarding, rebound, rigid Back exam: Absent: CVA tenderness (R), CVA tenderness (L) Neurological exam: Present: alert, oriented X3, CN II-XII intact Psychiatric exam: Present: normal affect, normal mood Skin exam: Present: warm, dry, intact, normal color. Absent: rash Course Vital Signs 10/31/22 10/31/22 10/31/22 00:43 01:36 02:00 Temperature 97.8 F Pulse Rate 81 Respiratory 18 Rate Blood Pressure 124/88 122/81 O2 Sat by Pulse 100 98 Oximetry Medical Decision Making - Medical Decision Making Was pt. sent in by a medical professional or institution (, PA, SEATER GRINDER, urgent care, hospital, or usp...) When possible be specific @ -No Did you speak to anyone other than the patient for history (EMS, parent, family, police, friend...)? What history was obtained from this source @ -No Did you review nursing and triage notes (agree or disagree)? Why? @ -I reviewed and agree with nursing and triage notes Were old charts reviewed (outside hosp., previous admission, EMS record, old EKG, old radiological studies, urgent care reports/EKG's, usp records)? Report findings @ -No old charts were reviewed Differential Diagnosis (chest pain, altered mental status, abdominal pain women, abdominal pain men, vaginal bleeding, weakness, fever, dyspnea, syncope, headache, dizziness, GI bleed, back pain, seizure, CVA, palpatations, mental health)? @ -Differential Abdominal Pain Women: Appendicitis, Cholecystitis, diverticulosis, ischemic bowel, pancreatitis, hepatitis, UTI, gastroenteritis, AAA, incarcerated hernia, bowel obstruction, constipation, inflammatory bowel, hepatitis, peptic ulcer disease, splenic infarction, perforated viscus, vulvitis, ovarian torsion, PID, kidney stone, placenta abruption, this is not meant to be an all-inclusive list EKG interpreted by me (3pts min.). @ -As above X-rays interpreted by me (1pt min.). @ -None done CT interpreted by me (1pt min.). @ -Yes, CT of the abdomen and pelvis with contrast shows a 3 mm nonobstructing calculus in the distal left ureter with left-sided hydronephrosis and hydroureter. There is also a large right ovarian cyst approximately 4.5 cm and biliary air. Patient does not have pain in her right lower quadrant or right upper quadrant. U/S interpreted by me (1pt. min.). @ -None done What testing was considered but not performed or refused? (CT, X-rays, U/S, labs)? Why? @ -None What meds were considered but not given or refused? Why? @ -None Did you discuss the management of the patient with other professionals (professionals i.e. , PA, SEATER GRINDER, lab, RT, psych nurse, social media executive, police communications operator, teacher, chief school finance officer, onsite case manager)? Give summary @ -No Was smoking cessation discussed for >3mins.? @ -No Was critical care preformed (if so, how long)? @ -No Were there social determinants of health that impacted care today? How? (Mata elessness, low income, unemployed, alcoholism, drug addiction, transportation, low edu. Level, literacy, decrease access to med. care, retirement, rehab)? @ -No] Was there de-escalation of care discussed even if they declined (Discuss DNR or withdrawal of care, Hospice)? DNR status @ -[No] What co-morbidities impacted this encounter? (DM, HTN, Smoking, COPD, CAD, Cancer, CVA, ARF, Chemo, Hep., AIDS, mental health diagnosis, sleep apnea, morbid obesity)? @ -[None] Was patient admitted / discharged? Hospital course, mention meds given and route, prescriptions, significant lab abnormalities, going to OR and other pertinent info. @ -Patient presenting with left lower quadrant pain. Afebrile. No vomiting. Patient has a 3 mm kidney stone in the left distal ureter. Kidney function is relatively normal. No leukocytosis. Patient given Toradol, Zofran, IV fluids with some improvement of symptoms. Her pain shortly returned after Toradol. She was given 1 dose of Dilaudid. Results discussed with patient. Discussed incidental CT findings. Patient in stable medical condition for discharge she will increase fluid intake and follow up with urology. Undiagnosed new problem with uncertain prognosis? @ -[No] Drug Therapy requiring intensive monitoring for toxicity (Heparin, Nitro, Insulin, Cardizem)? @ -[No] Were any procedures done? @ -[No] Diagnosis/symptom? @ -kidney stone Acute, or Chronic, or Acute on Chronic? @ -acute Uncomplicated (without systemic symptoms) or Complicated (systemic symptoms)? @ -uncomplicated Side effects of treatment? @ -[No] Exacerbation, Progression, or Severe Exacerbation? @ -[No] Poses a threat to life or bodily function? How? (Chest pain, [place], [place], pneumonia, PE, COPD, DKA, ARF, appy, cholecystitis, CVA, Diverticulitis, Homicidal, Suicidal, threat to staff... and all critical care pts) @ -[No] Dr. Chau is my attending - Lab Data Result diagrams: 10/31/22 01:26 10/31/22 01:26 Lab Results 10/31/22 10/31/22 10/31/22 Range/Units 01:00 01:26 01:26 WBC 7.0 (3.8-10.6) k/uL RBC 4.18 (3.80-5.40) m/uL Hgb 13.4 (11.4-16.0) gm/dL Hct 38.1 (34.0-46.0) % MCV 91.0 (80.0-100.0) fL MCH 32.0 (25.0-35.0) pg MCHC 35.2 (31.0-37.0) g/dL RDW 13.2 (11.5-15.5) % Plt Count 318 (150-450) k/uL MPV 8.0 Neutrophils % 51 % Lymphocytes % 39 % Monocytes % 4 % Eosinophils % 2 % Basophils % 0 % Neutrophils # 3.6 (1.3-7.7) k/uL Lymphocytes # 2.7 (1.0-4.8) k/uL Monocytes # 0.3 (0-1.0) k/uL Eosinophils # 0.2 (0-0.7) k/uL Basophils # 0.0 (0-0.2) k/uL Sodium 137 (137-145) mmol/L Potassium 4.6 (3.5-5.1) mmol/L Chloride 105 (98-107) mmol/L Carbon Dioxide 26 (22-30) mmol/L Anion Gap 6 mmol/L BUN 23 H (7-17) mg/dL Creatinine 0.92 (0.52-1.04) mg/dL Est GFR (CKD-EPI)AfAm 89 (>60 ml/min/1.73 sqM) Est GFR (CKD-EPI)NonAf 77 (>60 ml/min/1.73 sqM) Glucose 116 H (74-99) mg/dL Plasma Lactic Acid Emre (0.7-2.0) mmol/L Calcium 9.3 (8.4-10.2) mg/dL Total Bilirubin 0.4 (0.2-1.3) mg/dL AST 32 (14-36) U/L ALT 32 (4-34) U/L Alkaline Phosphatase 77 (38-126) U/L Total Protein 7.2 (6.3-8.2) g/dL Albumin 4.3 (3.5-5.0) g/dL Lipase 68 (23-300) U/L Urine Color Yellow Urine Appearance Turbid H (Clear) Urine pH 7.0 (5.0-8.0) Ur Specific [place] 1.023 (1.001-1.035) Urine Protein 1+ H (Negative) Urine Glucose (UA) Negative (Negative) Urine Ketones Negative (Negative) Urine Blood Large H (Negative) Urine Nitrite Negative (Negative) Urine Bilirubin Negative (Negative) Urine Urobilinogen 2.0 (<2.0) mg/dL Ur Leukocyte Esterase Trace H (Negative) Urine RBC >182 H (0-5) /hpf Urine WBC 6 H (0-5) /hpf Ur Squamous Epith Cells 4 (0-4) /hpf Urine Bacteria Occasional H (None) /hpf Urine Mucus Rare H (None) /hpf 10/31/22 Range/Units 01:26 WBC (3.8-10.6) k/uL RBC (3.80-5.40) m/uL Hgb (11.4-16.0) gm/dL Hct (34.0-46.0) % MCV (80.0-100.0) fL MCH (25.0-35.0) pg MCHC (31.0-37.0) g/dL RDW (11.5-15.5) % Plt Count (150-450) k/uL MPV Neutrophils % % Lymphocytes % % Monocytes % % Eosinophils % % Basophils % % Neutrophils # (1.3-7.7) k/uL Lymphocytes # (1.0-4.8) k/uL Monocytes # (0-1.0) k/uL Eosinophils # (0-0.7) k/uL Basophils # (0-0.2) k/uL Sodium (137-145) mmol/L Potassium (3.5-5.1) mmol/L Chloride (98-107) mmol/L Carbon Dioxide (22-30) mmol/L Anion Gap mmol/L BUN (7-17) mg/dL Creatinine (0.52-1.04) mg/dL Est GFR (CKD-EPI)AfAm (>60 ml/min/1.73 sqM) Est GFR (CKD-EPI)NonAf (>60 ml/min/1.73 sqM) Glucose (74-99) mg/dL Plasma Lactic Acid Emre 1.6 (0.7-2.0) mmol/L Calcium (8.4-10.2) mg/dL Total Bilirubin (0.2-1.3) mg/dL AST (14-36) U/L ALT (4-34) U/L Alkaline Phosphatase (38-126) U/L Total Protein (6.3-8.2) g/dL Albumin (3.5-5.0) g/dL Lipase (23-300) U/L Urine Color Urine Appearance (Clear) Urine pH (5.0-8.0) Ur Specific [place] (1.001-1.035) Urine Protein (Negative) Urine Glucose (UA) (Negative) Urine Ketones (Negative) Urine Blood (Negative) Urine Nitrite (Negative) Urine Bilirubin (Negative) Urine Urobilinogen (<2.0) mg/dL Ur Leukocyte Esterase (Negative) Urine RBC (0-5) /hpf Urine WBC (0-5) /hpf Ur Squamous Epith Cells (0-4) /hpf Urine Bacteria (None) /hpf Urine Mucus (None) /hpf Disposition Clinical Impression: Kidney stone Disposition: HOME SELF-CARE Condition: Good Instructions (If sedation given, give patient instructions): Kidney Stones (ED) Additional Instructions: Increase water intake which will help pass stone. Take medication as directed. Follow-up with urology in 1-2 days. Return to the emergency department experience new, concerning, or worsening symptoms. Prescriptions: Tamsulosin [Flomax] 0.4 mg PO DAILY #7 cap Ibuprofen [Motrin] 800 mg PO Q8HR PRN #30 tab PRN Reason: Pain Ondansetron Odt [Zofran Odt] 4 mg PO Q8HR PRN #10 tab PRN Reason: Nausea Is patient prescribed a controlled substance at d/c from ED?: No Referrals: Omi Boland DO [Primary Care Provider] - 1-2 days Mahendra Fritz MD [STAFF PHYSICIAN] - 1-2 days Time of Disposition: 03:15
[2022-10-31 03:26] VITALS: BP 128/79; PULSE 88; RESP 16; TEMP 97.9
== END 2022-10-31 03:27 | disposition home or self-care (01) ==
LOC: EC 00:36
DX: N20.0 Calculus of kidney (principal); F41.9 Anxiety disorder, unspecified; F31.9 Bipolar disorder, unspecified
CPT/HCPCS: 36415; 80053; 83605; 83690; 85025; 81001; 81025; 74177; 99284; 96374; 96375 ×2; 96361; J2405; J1885; J1170; Q9967

== ENCOUNTER → 2023-12-09 | Outpatient (CLI) | payer BC ==
--- NOTE | 2023-12-10 18:11 | MM ---
Reason for Exam: Screening (asymptomatic). Baseline mammogram. Patient History: Menarche at age 9. First Full-Term at age 20. Risk Values: Carmen 5 year model risk: 0.8%. NCI Lifetime model risk: 9.5%. Prior Study Comparison: Patient's first Mammogram. Tissue Density: There are scattered areas of fibroglandular density. Findings: Analyzed By CAD. There is an 8 mm nodule upper outer quadrant right breast at a middle depth. Further ultrasound evaluation recommended to confirm an intramammary lymph node. Given the prominent size, subsequent short interval follow-up may be recommended to demonstrate stability. Otherwise, no suspicious calcification or other discrete abnormality is seen. Overall Assessment: Incomplete: need additional imaging evaluation, BI-RAD 0 Management: Diagnostic Breast Ultrasound of the right breast. . [facility] will attempt to contact patient to return for supplemental views and ultrasound if indicated. Electronically signed and approved by: Yan Danielle M.D. Radiologist
== END | disposition home or self-care (01) ==
LOC: RADMAMWWP 06:50
PROVIDERS: ATTEND Family Medicine
DX: Z12.31 Encounter for screening mammogram for malignant neoplasm of breast (principal)
CPT/HCPCS: 77063; 77067

== ENCOUNTER → 2023-12-12 | Outpatient (CLI) | payer BC ==
--- NOTE | 2023-12-12 07:46 | USB ---
Reason for Exam: Additional evaluation requested from abnormal screening. Patient History: Menarche at age 9. First Full-Term at age 20. Risk Values: Carmen 5 year model risk: 0.8%. NCI Lifetime model risk: 9.5%. Technique: Method: Targeted. Patient Position: LPO. Prior Study Comparison: 12/09/2023 Bilateral MG 3D screening mammo w/cad, [facility]. Findings: The upper outer quadrant of the right breast, the axilla of the right breast and the retroareolar of the right breast were scanned. Ultrasound upper outer quadrant right breast 9:00 to 12:00 including scanning of the subareolar region and axilla. No solid or cystic lesion or axillary adenopathy. Mammographic findings highly suggestive of an intramammary lymph node. 6 month follow-up to reassess. Overall Assessment: Probably benign, BI-RAD 3 Management: Diagnostic Mammogram of the right breast in 6 months. A clinical breast exam by your physician is recommended on an annual basis and results should be correlated with mammographic findings. This exam should not preclude additional follow-up of suspicious palpable abnormalities. Results were given to the patient verbally at the time of exam. Electronically signed and approved by: Yan Danielle M.D. Radiologist
== END | disposition home or self-care (01) ==
LOC: RADUSWWP 07:04
PROVIDERS: ATTEND Family Medicine
DX: R92.8 Other abnormal and inconclusive findings on diagnostic imaging of breast (principal)